=== PATIENT | male | born 1950 | race African-American/Black ===

== ENCOUNTER 2018-09-02 11:23 | Inpatient (IN) | payer MEDICAID, MEDICARE, OTHER ==
[~2018-09-02] VITALS: Ht 188 cm; Wt 108.0 kg
[2018-09-02 11:56] LABS: EOSINOPHILS % 2.7 % (0.0-5.0); HEMATOCRIT. 43.6 % (42.0-52.0); HEMOGLOBIN. 14.4 g/dL (14.0-18.0); LYMPHOCYTES % 28.8 % (20.0-50.0); MEAN CORPUSCULAR HEMOGLOBIN 31.1 pg (28.0-32.0); MEAN CORPUSCULAR VOLUME 94.2 fL (80.0-94.0); MEAN PLATELET VOLUME 9.8 fl (7.4-10.4); MONOCYTES % 11.2 % (2.0-8.0); NEUTROPHILS % 55.3 % (40.0-76.0); PLATELET 187 x1000/uL (130-400); RED BLOOD CELL COUNT 4.63 mill/uL (4.7-6.1); RED CELL DISTRIBUTION WIDTH 16.7 % (11.6-14.6)
[2018-09-02 12:02] LABS: CHLORIDE 106 mEq/L (98-107)
[2018-09-02 12:06] LABS: ETHANOL BLOOD < 10 mg/dL
[2018-09-02 12:09] LABS: LDL CHOLESTEROL 94 mg/dL (5-100)
[2018-09-02 12:14] LABS: INR 1.1; PROTHROMBIN TIME 11.3 sec (9.1-11.1)
[2018-09-02] MEDS ORDERED: IOHEXOL-350 100 ML BOTTLE ONE (12:28)
[2018-09-02] MEDS ORDERED: ASPIRIN 325MG TABLET PO ONE (12:45)
[2018-09-02] MEDS ORDERED: ASPIRIN 300MG SUPP PR ONE (13:00)
[2018-09-02] MEDS ORDERED: SODIUM CHLORIDE 0.9% 1,000 ML IV SCH (13:01)
[2018-09-02 13:16] LABS: CLARITY URINE CLEAR (CLEAR); COLOR URINE YELLOW (YELLOW); KETONES URINE NEGATIVE (NEGATIVE); LEUKOCYTE ESTERASE URINE NEGATIVE (NEGATIVE); NITRITE URINE NEGATIVE (NEGATIVE); OCCULT BLOOD URINE NEGATIVE (NEGATIVE); PROTEIN URINE NEGATIVE (NEGATIVE); SPECIFIC GRAVITY URINE 1.016 (1.005-1.030)
[2018-09-02 13:26] LABS: *AMPHETAMINES SCREEN URINE NEGATIVE (NEGATIVE); *BARBITURATES SCREEN URINE NEGATIVE (NEGATIVE); *BENZODIAZEPINES SCREEN URINE NEGATIVE (NEGATIVE); *COCAINE SCREEN URINE NEGATIVE (NEGATIVE); CANNABINOID URINE SCREEN PRESUMTIVE POSITIVE (NEGATIVE); METHADONE URINE SCREEN NEGATIVE (NEGATIVE); OPIATES URINE SCREEN NEGATIVE (NEGATIVE); PHENCYCLIDINE URINE SCREEN NEGATIVE (NEGATIVE)
[2018-09-02 14:00] VITALS: BP 150/110
[2018-09-02] MEDS ORDERED: GUAIFENESIN 200MG/10ML SUGAR FREE UDC PO PRN (14:15)
[2018-09-02] MEDS ORDERED: NA PHOS,M-B/NA PHOS,DI-BA ENEMA 118ML PR PRN (14:15)
[2018-09-02] MEDS ORDERED: ONDANSETRON HCL 4MG/2ML INJ IV PRN (14:15)
[2018-09-02] MEDS ORDERED: HYDROCODONE/ACETAMINOPHEN 5/325MG TABLET PO PRN (14:15)
[2018-09-02] MEDS ORDERED: ACETAMINOPHEN 325MG TABLET PO PRN (14:15)
[2018-09-02] MEDS ORDERED: ACETAMINOPHEN 650MG/20.3ML UDC GT PRN (14:15)
[2018-09-02] MEDS ORDERED: DIPHENHYDRAMINE 50MG/ML VIAL IV PRN (14:15)
[2018-09-02] MEDS ORDERED: ACETAMINOPHEN 650MG SUPP PR PRN (14:15)
[2018-09-02] MEDS ORDERED: MAGNESIUM/ALUMINUM HYDROXIDE/SIMETHICONE 30ML UDC PO PRN (14:15)
[2018-09-02] MEDS ORDERED: DOCUSATE SODIUM 100MG CAPSULE PO PRN (14:15)
[2018-09-02] MEDS ORDERED: HYDROCODONE/ACETAMINOPHEN 10/325MG TABLET PO PRN (14:15)
[2018-09-02 14:30] VITALS: BP 166/114
[2018-09-02 16:00] VITALS: BP 166/114
[2018-09-02 16:14] LABS: CLARITY URINE CLEAR (CLEAR); COLOR URINE YELLOW (YELLOW); KETONES URINE NEGATIVE (NEGATIVE); LEUKOCYTE ESTERASE URINE NEGATIVE (NEGATIVE); NITRITE URINE NEGATIVE (NEGATIVE); OCCULT BLOOD URINE NEGATIVE (NEGATIVE); PH URINE 7.5 (4.5-8.0); PROTEIN URINE NEGATIVE (NEGATIVE); SPECIFIC GRAVITY URINE 1.033 (1.005-1.030)
[2018-09-02] MEDS ORDERED: FURO80TA3 PO (16:19)
[2018-09-02] MEDS ORDERED: POTA-79 PO (16:19)
[2018-09-02] MEDS ORDERED: LISI10TA5 PO (16:19)
[2018-09-02] MEDS ORDERED: HYDR100T26 PO (16:19)
[2018-09-02] MEDS ORDERED: ISOS30TA12 PO (16:19)
[2018-09-02] MEDS ORDERED: CLOP75TA16 PO (16:19)
[2018-09-02] MEDS ORDERED: CARV25TA47 PO (16:19)
[2018-09-02] MEDS ORDERED: ATOR-2 PO (16:19)
[2018-09-02] MEDS ORDERED: AMIO100T4 PO (16:19)
[2018-09-02 16:35] LABS: *BENZODIAZEPINES SCREEN URINE NEGATIVE (NEGATIVE); *COCAINE SCREEN URINE NEGATIVE (NEGATIVE); METHADONE URINE SCREEN NEGATIVE (NEGATIVE); OPIATES URINE SCREEN NEGATIVE (NEGATIVE); PHENCYCLIDINE URINE SCREEN NEGATIVE (NEGATIVE)
[2018-09-02 16:36] LABS: *AMPHETAMINES SCREEN URINE NEGATIVE (NEGATIVE); *BARBITURATES SCREEN URINE NEGATIVE (NEGATIVE); CANNABINOID URINE SCREEN PRESUMTIVE POSITIVE (NEGATIVE)
[2018-09-02] MEDS: CLOPIDOGREL 75MG TABLET PO SCH (16:42)
[2018-09-02] MEDS: SODIUM CHLORIDE 0.45% 1,000 ML IV SCH (16:42)
[2018-09-02] MEDS: ENOXAPARIN 30MG/0.3ML SYR SUBCUT SCH (17:57)
[2018-09-02 18:00] VITALS: BP 174/117
[2018-09-02 19:49] VITALS: BP 157/101
[2018-09-02] MEDS: ATORVASTATIN CALCIUM 20MG TABLET PO SCH (20:59)
[2018-09-02] MEDS: SODIUM CHLORIDE 0.9% INJ 3ML FLUSH IVF SCH (21:00)
[2018-09-02 21:49] VITALS: BP 142/99
[2018-09-03] VITALS (12 sets, daily range): BP systolic 125–185; BP diastolic 45–124
[2018-09-03] MEDS: SODIUM CHLORIDE 0.9% INJ 3ML FLUSH IVF SCH ×3 (05:16→22:00)
[2018-09-03] MEDS: ENOXAPARIN 30MG/0.3ML SYR SUBCUT SCH ×2 (05:16→17:29)
[2018-09-03 06:37] LABS: BASOPHILS % 0.8 % (0.0-2.0); EOSINOPHILS % 3.7 % (0.0-5.0); HEMATOCRIT. 41.3 % (42.0-52.0); HEMOGLOBIN. 13.7 g/dL (14.0-18.0); LYMPHOCYTES % 29.6 % (20.0-50.0); MEAN CORPUSCULAR HEMOGLOBIN 31.3 pg (28.0-32.0); MONOCYTES % 13.7 % (2.0-8.0); NEUTROPHILS % 52.2 % (40.0-76.0); PLATELET 192 x1000/uL (130-400); RED BLOOD CELL COUNT 4.39 mill/uL (4.7-6.1); RED CELL DISTRIBUTION WIDTH 16.2 % (11.6-14.6)
[2018-09-03 06:56] LABS: CHLORIDE 107 mEq/L (98-107)
[2018-09-03 07:08] LABS: LDL CHOLESTEROL 96 mg/dL (5-100)
[2018-09-03 07:09] LABS: HDL CHOLESTEROL 69 mg/dL (40-59)
[2018-09-03] MEDS: CLOPIDOGREL 75MG TABLET PO SCH (09:06)
[2018-09-03] MEDS: ASPIRIN 81MG EC TABLET PO SCH (09:06)
[2018-09-03] MEDS: SODIUM CHLORIDE 0.45% 1,000 ML IV SCH (09:09)
[2018-09-03 10:23] LABS: T4 FREE 1.49 ng/dL (0.76-1.46)
[2018-09-03 15:56] LABS: CREATINE KINASE MB FRACTION 1.5 ng/mL (0.5-3.6)
[2018-09-03] MEDS: HYDRALAZINE 20MG/ML VIAL IV PRN (18:10)
[2018-09-03] MEDS: ATORVASTATIN CALCIUM 20MG TABLET PO SCH (20:23)
[2018-09-03 23:54] LABS: CREATINE KINASE MB FRACTION 1.4 ng/mL (0.5-3.6)
[2018-09-04] VITALS (39 sets, daily range): BP systolic 127–194; BP diastolic 68–150
[2018-09-04] MEDS: SODIUM CHLORIDE 0.9% INJ 3ML FLUSH IVF SCH ×3 (06:15→20:28)
[2018-09-04] MEDS: SODIUM CHLORIDE 0.45% 1,000 ML IV SCH (06:15)
[2018-09-04] MEDS: ENOXAPARIN 30MG/0.3ML SYR SUBCUT SCH ×2 (06:16→17:16)
[2018-09-04 06:36] LABS: BASOPHILS % 0.6 % (0.0-2.0); HEMATOCRIT. 43.1 % (42.0-52.0); HEMOGLOBIN. 14.2 g/dL (14.0-18.0); LYMPHOCYTES % 21.2 % (20.0-50.0); MEAN CORPUSCULAR HEMOGLOBIN 31.1 pg (28.0-32.0); MEAN CORPUSCULAR VOLUME 94.3 fL (80.0-94.0); MEAN PLATELET VOLUME 10.2 fl (7.4-10.4); NEUTROPHILS % 62.2 % (40.0-76.0); PLATELET 194 x1000/uL (130-400); RED BLOOD CELL COUNT 4.57 mill/uL (4.7-6.1); RED CELL DISTRIBUTION WIDTH 16.4 % (11.6-14.6)
[2018-09-04 07:09] LABS: CHLORIDE 106 mEq/L (98-107)
[2018-09-04 07:37] LABS: CREATINE KINASE 76 IU/L (39-308)
[2018-09-04 07:39] LABS: CREATINE KINASE MB FRACTION 1.6 ng/mL (0.5-3.6)
[2018-09-04] MEDS: CLOPIDOGREL 75MG TABLET PO SCH (08:42)
[2018-09-04] MEDS: ASPIRIN 81MG EC TABLET PO SCH (08:42)
[2018-09-04] MEDS: IPRATROPIUM/ALBUTEROL 0.5-3(2.5)MG/3ML NEB INH PRN ×2 (12:56→17:48)
[2018-09-04] MEDS ORDERED: AMLO10TA80 PO (14:12)
[2018-09-04] MEDS ORDERED: CLOP75TA16 PO (14:12)
[2018-09-04] MEDS ORDERED: BENA5TAB6 PO (14:12)
[2018-09-04] MEDS ORDERED: ASPI-1158 PO (14:12)
[2018-09-04] MEDS ORDERED: ATOR20TA PO (14:12)
[2018-09-04] MEDS ORDERED: AMLODIPINE 10MG TABLET PO SCH (14:15)
[2018-09-04] MEDS ORDERED: BENAZEPRIL 5MG TABLET PO SCH (15:00)
[2018-09-04] MEDS: HYDRALAZINE 20MG/ML VIAL IV PRN (15:55)
[2018-09-04] MEDS ORDERED: FUROSEMIDE 40MG/4ML VIAL IVP NR (16:15)
[2018-09-04] MEDS ORDERED: FUROSEMIDE 40MG/4ML VIAL IVP ONE (16:30)
[2018-09-04] MEDS: METHYLPREDNISOLONE SOD SUCC 40 MG/ML VIAL IV SCH ×2 (16:34→22:51)
[2018-09-04] MEDS: HYDRALAZINE HCL 50MG TABLET PO SCH ×2 (17:16→22:51)
[2018-09-04 17:18] LABS: BG BASE EXCESS -1.2 mmol/L (-2.0-2.0); BG CARBOXYHEMOGLOBIN 1.4 % (0.5-1.5); BG DEOXYHEMOGLOBIN 1.7 % (0.0-5.0); BG FRACTION INSPIRED OXYGEN 32; BG HCO3 ACT 19.9 mmol/L (22.0-26.0); BG METHEMOGLOBIN 0.5 % (0.0-1.5); BG OXYGEN SATURATION 98.3 % (92.0-98.5); BG OXYHEMOGLOBIN 96.4 % (94.0-97.0); BG PCO2 25.8 mmHg (35.0-45.0); BG PH 7.505 (7.350-7.450); BG PO2 102.8 mmHg (75.0-100.0); BG SAMPLE SITE RIGHT BRACHIAL; BG TOTAL HEMOGLOBIN 16.5 g/dL (12.0-18.0); BG VENT MODE NASAL CANNULA
[2018-09-04] MEDS ORDERED: HYDRALAZINE 20MG/ML VIAL IV PRN (18:30)
[2018-09-04 18:49] LABS: HEMATOCRIT 48.9 % (42.0-52.0); HEMOGLOBIN 16.2 g/dL (14.0-18.0); MEAN CORPUSCULAR HEMOGLOBIN 31.1 pg (28.0-32.0); MEAN CORPUSCULAR VOLUME 94.1 fL (80.0-94.0); PLATELET 201 x1000/uL (130-400); RED BLOOD CELL COUNT 5.19 mill/uL (4.7-6.1); RED CELL DISTRIBUTION WIDTH 16.2 % (11.6-14.6)
[2018-09-04 18:55] LABS: CHLORIDE 102 mEq/L (98-107)
[2018-09-04] MEDS: NITROGLYCERIN 0.2MG/HR PATCH TOP SCH (18:57)
[2018-09-04] MEDS: ATORVASTATIN CALCIUM 20MG TABLET PO SCH (20:28)
[2018-09-04] MEDS: ALBUTEROL (0.083%) 2.5MG/3ML NEB HHN SCH (20:37)
[2018-09-05] VITALS (32 sets, daily range): BP systolic 110–174; BP diastolic 60–130
[2018-09-05] MEDS: ALBUTEROL (0.083%) 2.5MG/3ML NEB HHN SCH ×4 (00:39→20:11)
[2018-09-05] MEDS: METHYLPREDNISOLONE SOD SUCC 40 MG/ML VIAL IV SCH (05:46)
[2018-09-05] MEDS: HYDRALAZINE HCL 50MG TABLET PO SCH (05:46)
[2018-09-05] MEDS: SODIUM CHLORIDE 0.9% INJ 3ML FLUSH IVF SCH ×2 (05:46→14:04)
[2018-09-05] MEDS: ENOXAPARIN 30MG/0.3ML SYR SUBCUT SCH ×2 (05:46→16:36)
[2018-09-05] MEDS: AMLODIPINE 10MG TABLET PO SCH (08:42)
[2018-09-05] MEDS: CLOPIDOGREL 75MG TABLET PO SCH (08:42)
[2018-09-05] MEDS: ASPIRIN 81MG EC TABLET PO SCH (08:42)
[2018-09-05] MEDS: BENAZEPRIL 5MG TABLET PO SCH (08:43)
[2018-09-05] MEDS: FUROSEMIDE 40MG/4ML VIAL IVP SCH (08:43)
[2018-09-05] MEDS: NITROGLYCERIN 0.2MG/HR PATCH TOP SCH (08:53)
[2018-09-05] MEDS ORDERED: BENAZEPRIL 5MG TABLET PO SCH (09:00)
[2018-09-05] MEDS ORDERED: MAGNESIUM CITRATE 300ML SOLUTION PO SCH (10:15)
[2018-09-05] MEDS ORDERED: BISACODYL 5MG TABLET PO SCH (10:15)
[2018-09-05] MEDS: HYDRALAZINE HCL 25MG TABLET PO SCH ×2 (14:21→22:00)
[2018-09-05] MEDS: ATORVASTATIN CALCIUM 20MG TABLET PO SCH (21:11)
[2018-09-06] VITALS (21 sets, daily range): BP systolic 99–165; BP diastolic 51–118
[2018-09-06] MEDS: ALBUTEROL (0.083%) 2.5MG/3ML NEB HHN SCH ×4 (00:41→20:53)
[2018-09-06] MEDS: ENOXAPARIN 30MG/0.3ML SYR SUBCUT SCH ×2 (05:41→17:05)
[2018-09-06] MEDS: HYDRALAZINE HCL 25MG TABLET PO SCH ×3 (05:42→21:56)
[2018-09-06] MEDS: CLOPIDOGREL 75MG TABLET PO SCH (08:29)
[2018-09-06] MEDS: AMLODIPINE 10MG TABLET PO SCH (08:29)
[2018-09-06] MEDS: BENAZEPRIL 5MG TABLET PO SCH (08:30)
[2018-09-06] MEDS: NITROGLYCERIN 0.2MG/HR PATCH TOP SCH (08:30)
[2018-09-06] MEDS: ASPIRIN 81MG EC TABLET PO SCH (08:30)
[2018-09-06] MEDS: FUROSEMIDE 40MG/4ML VIAL IVP SCH (08:30)
[2018-09-06] MEDS ORDERED: METHYLPREDNISOLONE SOD SUCC 40 MG/ML VIAL IV SCH (09:00)
[2018-09-06] MEDS ORDERED: BENA5TAB6 PO (10:21)
[2018-09-06] MEDS ORDERED: HYDR-4134 PO (10:21)
[2018-09-06] MEDS ORDERED: MEDICATION NOT ON FORMULARY EA (Furosemide 80 MG) PO SCH (10:30)
[2018-09-06] MEDS: CARVEDILOL 25MG TABLET PO SCH ×2 (10:55→21:00)
[2018-09-06] MEDS: SODIUM CHLORIDE 0.9% INJ 3ML FLUSH IVF SCH ×3 (14:12→21:58)
[2018-09-06 16:39] LABS: HEMATOCRIT. 45.9 % (42.0-52.0); MEAN CORPUSCULAR HEMOGLOBIN 30.8 pg (28.0-32.0); MEAN CORPUSCULAR VOLUME 94.2 fL (80.0-94.0); MEAN PLATELET VOLUME 10.4 fl (7.4-10.4); PLATELET 197 x1000/uL (130-400); RED BLOOD CELL COUNT 4.87 mill/uL (4.7-6.1); RED CELL DISTRIBUTION WIDTH 16.1 % (11.6-14.6)
[2018-09-06 17:02] LABS: CHLORIDE 100 mEq/L (98-107)
[2018-09-06 17:04] LABS: PLATELET ESTIMATE NORMAL
[2018-09-06] MEDS: FUROSEMIDE 40MG TABLET PO SCH (17:04)
[2018-09-06] MEDS: ATORVASTATIN CALCIUM 20MG TABLET PO SCH (21:55)
[2018-09-07] VITALS (9 sets, daily range): BP systolic 100–146; BP diastolic 60–95
[2018-09-07] MEDS: ALBUTEROL (0.083%) 2.5MG/3ML NEB HHN SCH ×4 (02:07→14:10)
[2018-09-07] MEDS: ENOXAPARIN 30MG/0.3ML SYR SUBCUT SCH (05:00)
[2018-09-07] MEDS: SODIUM CHLORIDE 0.9% INJ 3ML FLUSH IVF SCH ×2 (06:00→13:09)
[2018-09-07] MEDS: HYDRALAZINE HCL 25MG TABLET PO SCH ×2 (07:00→13:15)
[2018-09-07 07:50] LABS: BASOPHILS % 0.2 % (0.0-2.0); HEMOGLOBIN. 14.8 g/dL (14.0-18.0); LYMPHOCYTES % 11.7 % (20.0-50.0); MEAN CORPUSCULAR VOLUME 94.4 fL (80.0-94.0); MEAN PLATELET VOLUME 10.4 fl (7.4-10.4); MONOCYTES % 7.4 % (2.0-8.0); NEUTROPHILS % 80.7 % (40.0-76.0); PLATELET 224 x1000/uL (130-400); RED BLOOD CELL COUNT 4.77 mill/uL (4.7-6.1); RED CELL DISTRIBUTION WIDTH 15.9 % (11.6-14.6)
[2018-09-07 07:56] LABS: CHLORIDE 103 mEq/L (98-107)
[2018-09-07] MEDS: CLOPIDOGREL 75MG TABLET PO SCH (08:01)
[2018-09-07] MEDS: FUROSEMIDE 40MG TABLET PO SCH (08:01)
[2018-09-07] MEDS: ASPIRIN 81MG EC TABLET PO SCH (08:01)
[2018-09-07] MEDS: AMLODIPINE 10MG TABLET PO SCH (08:01)
[2018-09-07] MEDS: BENAZEPRIL 5MG TABLET PO SCH (08:01)
[2018-09-07] MEDS: CARVEDILOL 25MG TABLET PO SCH (08:02)
[2018-09-07] MEDS: NITROGLYCERIN 0.2MG/HR PATCH TOP SCH (08:07)
[2018-09-07] MEDS ORDERED: EZ-HD SUSPENSION(BARIUM SULFATE 340GM) PO ONE (08:25)
[2018-09-07] MEDS ORDERED: CARV25TA47 PO (14:04)
[2018-09-07] MEDS ORDERED: CARVEDILOL 6.25 MG TABLET PO SCH (21:00)
[2018-09-08] MEDS ORDERED: CARVEDILOL 25MG TABLET PO SCH (09:00)
== END 2018-09-07 15:00 | disposition home health service (06) | DRG 64 ==
LOC: ER 11:23 → 5EST 13:00 → EDBEDREQ 13:08 → EDBEDREQSVC 13:08 → ENRESERV 13:45 → UNDOADMIN 13:45 → 5EST 13:45 → CVICU 09-04 16:40 → 5EST 09-05 11:20
PROVIDERS: ADMIT Family Medicine; ATTEND Family Medicine
DX: I63.511 Cerebral infarction due to unspecified occlusion or stenosis of right middle cerebral artery (principal); N17.0 Acute kidney failure with tubular necrosis; I50.42 Chronic combined systolic (congestive) and diastolic (congestive) heart failure; I65.23 Occlusion and stenosis of bilateral carotid arteries; E66.01 Morbid (severe) obesity due to excess calories; J44.9 Chronic obstructive pulmonary disease, unspecified; F12.90 Cannabis use, unspecified, uncomplicated; E78.5 Hyperlipidemia, unspecified; I25.10 Atherosclerotic heart disease of native coronary artery without angina pectoris; I25.2 Old myocardial infarction; I25.5 Ischemic cardiomyopathy; I27.20 Pulmonary hypertension, unspecified; I11.0 Hypertensive heart disease with heart failure; Z79.02 Long term (current) use of antithrombotics/antiplatelets; Z79.899 Other long term (current) drug therapy; Z86.73 Personal history of transient ischemic attack (TIA), and cerebral infarction without residual deficits; Z87.19 Personal history of other diseases of the digestive system; Z95.5 Presence of coronary angioplasty implant and graft; Z95.810 Presence of automatic (implantable) cardiac defibrillator; Z68.31 Body mass index [BMI] 31.0-31.9, adult
CPT/HCPCS: 36415; 36600; 70496; 70498; 71045; 74230; 78580; 80048; 80061; 80305; 82375; 82550; 82553; 82805; 82962; 83036; 83721; 83735; 83880; 84439; 84443; 84484; 85027; 85379; 92610; 92611; 93005; 93306; 93880; 93970; 94640; 96374; 97116; 97162; 97166; 99285; G0482; J0360; J1650; J1940; J2405; J2920; J7030; J7611; Q9967

== ENCOUNTER 2019-07-30 21:12 | Inpatient (IN) | payer MEDICARE ==
[~2019-07-30] VITALS: Ht 188 cm; Wt 112.7 kg
[~2019-07-30 21:12] MED LIST: AMIO100T4 PO; ASPI-1158 PO; ATOR-2 PO; CARV12.545 PO; CLOP75TA4 PO; POTA-79 PO; SACU1TAB4 PO; SPIR50TA5 PO
[2019-07-31] MEDS ORDERED: HYDROCODONE/ACETAMINOPHEN 10/325MG TABLET PO PRN (00:45)
[2019-07-31] MEDS ORDERED: MAGNESIUM/ALUMINUM HYDROXIDE/SIMETHICONE 30ML UDC PO PRN (00:45)
[2019-07-31] MEDS ORDERED: DOCUSATE SODIUM 100MG CAPSULE PO PRN (00:45)
[2019-07-31] MEDS ORDERED: IPRATROPIUM/ALBUTEROL 0.5-3(2.5)MG/3ML NEB HHN PRN (00:45)
[2019-07-31] MEDS ORDERED: GUAIFENESIN 200MG/10ML SUGAR FREE UDC PO PRN (00:45)
[2019-07-31] MEDS ORDERED: ONDANSETRON HCL 4MG/2ML INJ IV PRN (00:45)
[2019-07-31] MEDS ORDERED: NA PHOS,M-B/NA PHOS,DI-BA ENEMA 118ML PR PRN (00:45)
[2019-07-31] MEDS ORDERED: ACETAMINOPHEN 650MG/20.3ML UDC GT PRN (00:45)
[2019-07-31] MEDS ORDERED: HYDROCODONE/ACETAMINOPHEN 5/325MG TABLET PO PRN (00:45)
[2019-07-31] MEDS ORDERED: CLONIDINE 0.1MG TABLET PO PRN (00:45)
[2019-07-31] MEDS ORDERED: DIPHENHYDRAMINE 50MG/ML VIAL IV PRN (00:45)
[2019-07-31] MEDS ORDERED: ACETAMINOPHEN 650MG SUPP PR PRN (00:45)
[2019-07-31 00:57] LABS: BASOPHILS % 1.2 % (0.0-2.0); EOSINOPHILS % 4.6 % (0.0-5.0); HEMATOCRIT. 44.6 % (42.0-52.0); HEMOGLOBIN. 14.8 g/dL (14.0-18.0); LYMPHOCYTES % 35.3 % (20.0-50.0); MEAN CORPUSCULAR HEMOGLOBIN 32.4 pg (28.0-32.0); MEAN CORPUSCULAR VOLUME 97.5 fL (80.0-94.0); MEAN PLATELET VOLUME 8.8 fl (7.4-10.4); MONOCYTES % 14.6 % (2.0-8.0); NEUTROPHILS % 44.3 % (40.0-76.0); PLATELET 260 x1000/uL (130-400); RED BLOOD CELL COUNT 4.57 mill/uL (4.7-6.1); RED CELL DISTRIBUTION WIDTH 15.4 % (11.6-14.6)
[2019-07-31 01:00] LABS: CLARITY URINE CLEAR (CLEAR); COLOR URINE YELLOW (YELLOW); KETONES URINE NEGATIVE (NEGATIVE); LEUKOCYTE ESTERASE URINE NEGATIVE (NEGATIVE); NITRITE URINE NEGATIVE (NEGATIVE); OCCULT BLOOD URINE NEGATIVE (NEGATIVE); PROTEIN URINE NEGATIVE (NEGATIVE); SPECIFIC GRAVITY URINE 1.018 (1.005-1.030)
[2019-07-31 01:16] LABS: *BENZODIAZEPINES SCREEN URINE NEGATIVE (NEGATIVE); *COCAINE SCREEN URINE NEGATIVE (NEGATIVE); METHADONE URINE SCREEN NEGATIVE (NEGATIVE)
[2019-07-31 01:17] LABS: *AMPHETAMINES SCREEN URINE NEGATIVE (NEGATIVE); *BARBITURATES SCREEN URINE NEGATIVE (NEGATIVE); CANNABINOID URINE SCREEN PRESUMTIVE POSITIVE (NEGATIVE); OPIATES URINE SCREEN NEGATIVE (NEGATIVE); PHENCYCLIDINE URINE SCREEN NEGATIVE (NEGATIVE)
[2019-07-31 03:03] LABS: CHLORIDE 107 mEq/L (98-107)
[2019-07-31 07:06] LABS: CREATINE KINASE 77 IU/L (39-308)
[2019-07-31 07:07] LABS: CREATINE KINASE MB FRACTION < 1.0 ng/mL (0.5-3.6)
[2019-07-31] MEDS ORDERED: ASPIRIN 81MG EC TABLET PO SCH (15:00)
[2019-07-31] MEDS ORDERED: MEDICATION NOT ON FORMULARY EA (Sacubitril/Valsartan (Entresto 97 mg-103 mg Tablet) 1 TA PO SCH (15:15)
[2019-07-31] MEDS ORDERED: MEDICATION NOT ON FORMULARY EA (Amiodarone HCl 200 MG) PO SCH (15:15)
[2019-07-31] MEDS ORDERED: CARVEDILOL 12.5MG TABLET PO SCH (15:15)
[2019-07-31] MEDS ORDERED: MEDICATION NOT ON FORMULARY EA (Atorvastatin Calcium 80 MG) PO SCH (15:15)
[2019-07-31] MEDS ORDERED: MEDICATION NOT ON FORMULARY EA (Potassium Chloride 20 MEQ) PO SCH (15:15)
[2019-07-31] MEDS: ACETAMINOPHEN 325MG TABLET PO PRN (19:58)
[2019-07-31] MEDS ORDERED: SPIRONOLACTONE 50MG TABLET PO NR (20:00)
[2019-07-31 20:47] LABS: CREATINE KINASE 67 IU/L (39-308)
[2019-07-31 20:48] LABS: CREATINE KINASE MB FRACTION < 1.0 ng/mL (0.5-3.6)
[2019-07-31] MEDS: CARVEDILOL 12.5MG TABLET PO SCH (20:52)
[2019-07-31] MEDS: ENOXAPARIN 40MG/0.4ML SYR SUBCUT SCH (20:59)
[2019-08-01] VITALS (11 sets, daily range): BP systolic 93–131; BP diastolic 53–99
[2019-08-01] MEDS: SODIUM CHLORIDE 0.9% INJ 3ML FLUSH IVF SCH ×3 (06:17→22:00)
[2019-08-01 07:17] LABS: CHLORIDE 104 mEq/L (98-107)
[2019-08-01 07:35] LABS: LDL CHOLESTEROL 109 mg/dL (5-100)
[2019-08-01 07:38] LABS: HDL CHOLESTEROL 48 mg/dL (40-59)
[2019-08-01 08:14] LABS: BASOPHILS % 0.6 % (0.0-2.0); EOSINOPHILS % 4.1 % (0.0-5.0); HEMATOCRIT. 46.8 % (42.0-52.0); HEMOGLOBIN. 15.2 g/dL (14.0-18.0); LYMPHOCYTES % 39.2 % (20.0-50.0); MEAN CORPUSCULAR HEMOGLOBIN 32.2 pg (28.0-32.0); MEAN CORPUSCULAR VOLUME 98.8 fL (80.0-94.0); MEAN PLATELET VOLUME 8.8 fl (7.4-10.4); MONOCYTES % 10.7 % (2.0-8.0); NEUTROPHILS % 45.4 % (40.0-76.0); PLATELET 251 x1000/uL (130-400); RED BLOOD CELL COUNT 4.73 mill/uL (4.7-6.1); RED CELL DISTRIBUTION WIDTH 15.6 % (11.6-14.6)
[2019-08-01 08:34] LABS: CLARITY URINE CLEAR (CLEAR); COLOR URINE DARK YELLOW (YELLOW); KETONES URINE NEGATIVE (NEGATIVE); LEUKOCYTE ESTERASE URINE NEGATIVE (NEGATIVE); NITRITE URINE NEGATIVE (NEGATIVE); OCCULT BLOOD URINE NEGATIVE (NEGATIVE); PH URINE 5.5 (4.5-8.0); PROTEIN URINE NEGATIVE (NEGATIVE); SPECIFIC GRAVITY URINE 1.025 (1.005-1.030)
[2019-08-01] MEDS: POTASSIUM CHLORIDE 20MEQ TABLET SR PO SCH (08:35)
[2019-08-01] MEDS: CLOPIDOGREL 75MG TABLET PO SCH (08:35)
[2019-08-01] MEDS: CARVEDILOL 12.5MG TABLET PO SCH ×2 (08:35→20:09)
[2019-08-01] MEDS: ASPIRIN 81MG EC TABLET PO SCH (08:35)
[2019-08-01] MEDS: SPIRONOLACTONE 50MG TABLET PO SCH (08:36)
[2019-08-01] MEDS ORDERED: AMIODARONE HCL 200 MG TABLET PO SCH (09:00)
[2019-08-01] MEDS: ENOXAPARIN 40MG/0.4ML SYR SUBCUT SCH (15:44)
[2019-08-01] MEDS: ENTRESTO 97-103MG TABLET PO SCH ×2 (19:29→23:30)
[2019-08-01] MEDS ORDERED: ATORVASTATIN CALCIUM 40MG TABLET PO SCH (21:00)
[2019-08-01] MEDS: MEXILETINE HCL 200 MG CAPSULE PO SCH (22:00)
[2019-08-02] VITALS (10 sets, daily range): BP systolic 105–131; BP diastolic 50–98
[2019-08-02] MEDS: AMIODARONE HCL 200 MG TABLET PO SCH ×2 (03:22→10:38)
[2019-08-02] MEDS: MEXILETINE HCL 200 MG CAPSULE PO SCH ×2 (06:00→14:00)
[2019-08-02] MEDS: SODIUM CHLORIDE 0.9% INJ 3ML FLUSH IVF SCH (06:52)
[2019-08-02] MEDS: ENTRESTO 97-103MG TABLET PO SCH (09:14)
[2019-08-02] MEDS: POTASSIUM CHLORIDE 20MEQ TABLET SR PO SCH (09:18)
[2019-08-02] MEDS: SPIRONOLACTONE 50MG TABLET PO SCH (09:18)
[2019-08-02] MEDS: ASPIRIN 81MG EC TABLET PO SCH (09:18)
[2019-08-02] MEDS: CLOPIDOGREL 75MG TABLET PO SCH (09:18)
[2019-08-02] MEDS ORDERED: MEXI200C PO ×2 (10:08→16:28)
[2019-08-02] MEDS ORDERED: AMI2 PO (10:08)
[2019-08-02] MEDS: CARVEDILOL 12.5MG TABLET PO SCH (10:40)
[2019-08-02 11:06] LABS: HEMATOCRIT 48.6 % (42.0-52.0); HEMOGLOBIN 15.9 g/dL (14.0-18.0); MEAN CORPUSCULAR HEMOGLOBIN 32.2 pg (28.0-32.0); MEAN CORPUSCULAR VOLUME 98.4 fL (80.0-94.0); PLATELET 264 x1000/uL (130-400); RED BLOOD CELL COUNT 4.95 mill/uL (4.7-6.1); RED CELL DISTRIBUTION WIDTH 15.3 % (11.6-14.6)
[2019-08-02 11:42] LABS: CHLORIDE 104 mEq/L (98-107)
[2019-08-02] MEDS: ACETAMINOPHEN 325MG TABLET PO PRN (15:55)
== END 2019-08-02 16:50 | disposition home health service (06) | DRG 310 ==
LOC: ER 21:12 → EDBEDREQ 07-31 00:54 → EDBEDREQTM 07-31 00:54 → ENRESERV 08-01 → 3WST 08-01 00:55
PROVIDERS: ADMIT Family Medicine; ATTEND Family Medicine
PROC: 4B02XTZ Measurement of Cardiac Defibrillator, External Approach (ICD-10-PCS; principal; 2019-07-31)
DX: I47.2 Ventricular tachycardia (principal); I25.5 Ischemic cardiomyopathy; I48.0 Paroxysmal atrial fibrillation; I11.0 Hypertensive heart disease with heart failure; E78.5 Hyperlipidemia, unspecified; I25.10 Atherosclerotic heart disease of native coronary artery without angina pectoris; J44.9 Chronic obstructive pulmonary disease, unspecified; K21.9 Gastro-esophageal reflux disease without esophagitis; K59.00 Constipation, unspecified; I50.9 Heart failure, unspecified; Z86.73 Personal history of transient ischemic attack (TIA), and cerebral infarction without residual deficits; I25.2 Old myocardial infarction; Z95.5 Presence of coronary angioplasty implant and graft; Z95.810 Presence of automatic (implantable) cardiac defibrillator; Z79.899 Other long term (current) drug therapy; Z79.82 Long term (current) use of aspirin
CPT/HCPCS: 36415; 71045; 80053; 80061; 81003; 85025; 85027; 93005; 93970; 96372; 99291; J1650

== ENCOUNTER 2019-09-01 16:35 | Inpatient (IN) | payer MEDICARE, OTHER ==
[~2019-09-01] VITALS: Ht 188 cm; Wt 102.1 kg
[~2019-09-01 16:35] MED LIST changes: +AMI2 PO; -AMIO100T4 PO; +MEXI200C PO
[2019-09-01] MEDS ORDERED: SODIUM CHLORIDE 0.9% 1,000 ML IV ONE (17:07)
[2019-09-01 17:50] LABS: BASOPHILS % 0.9 % (0.0-2.0); EOSINOPHILS % 1.8 % (0.0-5.0); HEMATOCRIT. 47.3 % (42.0-52.0); HEMOGLOBIN. 15.7 g/dL (14.0-18.0); LYMPHOCYTES % 35.3 % (20.0-50.0); MEAN CORPUSCULAR HEMOGLOBIN 31.7 pg (28.0-32.0); MEAN CORPUSCULAR VOLUME 95.5 fL (80.0-94.0); MEAN PLATELET VOLUME 8.9 fl (7.4-10.4); MONOCYTES % 11.7 % (2.0-8.0); NEUTROPHILS % 50.3 % (40.0-76.0); PLATELET 158 x1000/uL (130-400); RED BLOOD CELL COUNT 4.95 mill/uL (4.7-6.1); RED CELL DISTRIBUTION WIDTH 15.6 % (11.6-14.6)
[2019-09-01 17:54] LABS: CHLORIDE 106 mEq/L (98-107); INR 1.1; PARTIAL THROMBOPLASTIN TIME 27.8 sec (23.4-31.0); PROTHROMBIN TIME 10.9 sec (9.6-11.0)
[2019-09-01 18:13] LABS: CLARITY URINE CLEAR (CLEAR); COLOR URINE YELLOW (YELLOW); KETONES URINE NEGATIVE (NEGATIVE); LEUKOCYTE ESTERASE URINE NEGATIVE (NEGATIVE); NITRITE URINE NEGATIVE (NEGATIVE); OCCULT BLOOD URINE NEGATIVE (NEGATIVE); PROTEIN URINE NEGATIVE (NEGATIVE); SPECIFIC GRAVITY URINE 1.008 (1.005-1.030); UROBILINOGEN URINE 0.2 E.U./dL (0.2-1.0)
[2019-09-01] MEDS ORDERED: SODIUM POLYSTYRENE SULFONATE 15 G/60 ML BOT PO ONE (19:15)
[2019-09-01] MEDS ORDERED: ASPIRIN 325MG EC TABLET PO ONE (19:30)
[2019-09-02 04:00] VITALS: BP 132/89
[2019-09-02 04:30] VITALS: BP 132/89
[2019-09-02] MEDS ORDERED: HYDROCODONE/ACETAMINOPHEN 5/325MG TABLET PO PRN (05:45)
[2019-09-02 08:00] VITALS: BP 102/65
[2019-09-02 12:00] VITALS: BP 97/56
[2019-09-02] MEDS: ENOXAPARIN 40MG/0.4ML SYR SUBCUT SCH (13:51)
[2019-09-02 16:15] VITALS: BP 126/85
[2019-09-02 20:00] VITALS: BP 136/96
[2019-09-02] MEDS: ATORVASTATIN CALCIUM 40MG TABLET PO SCH (20:33)
[2019-09-02] MEDS: AMIODARONE HCL 200 MG TABLET PO SCH (20:33)
[2019-09-02] MEDS ORDERED: CARVEDILOL 12.5MG TABLET PO SCH (21:00)
[2019-09-03] VITALS: BP 113/75
[2019-09-03 04:00] VITALS: BP 91/59
[2019-09-03 08:00] VITALS: BP 102/75
[2019-09-03] MEDS: ENOXAPARIN 40MG/0.4ML SYR SUBCUT SCH (09:57)
[2019-09-03] MEDS: AMIODARONE HCL 200 MG TABLET PO SCH ×2 (09:57→21:26)
[2019-09-03] MEDS: SPIRONOLACTONE 50MG TABLET PO SCH (09:57)
[2019-09-03] MEDS: CLOPIDOGREL 75MG TABLET PO SCH (09:57)
[2019-09-03] MEDS: ASPIRIN 81MG TABLET PO SCH (09:58)
[2019-09-03 12:00] VITALS: BP 159/99
[2019-09-03 15:56] LABS: BASOPHILS % 0.5 % (0.0-2.0); EOSINOPHILS % 2.9 % (0.0-5.0); HEMATOCRIT. 47.8 % (42.0-52.0); LYMPHOCYTES % 37.7 % (20.0-50.0); MEAN CORPUSCULAR HEMOGLOBIN 32.1 pg (28.0-32.0); MEAN CORPUSCULAR VOLUME 96.1 fL (80.0-94.0); MEAN PLATELET VOLUME 8.9 fl (7.4-10.4); MONOCYTES % 12.8 % (2.0-8.0); NEUTROPHILS % 46.1 % (40.0-76.0); PLATELET 117 x1000/uL (130-400); RED BLOOD CELL COUNT 4.97 mill/uL (4.7-6.1); RED CELL DISTRIBUTION WIDTH 15.1 % (11.6-14.6)
[2019-09-03 16:00] VITALS: BP 128/85
[2019-09-03] MEDS ORDERED: AMI2 PO (17:31)
[2019-09-03 19:19] LABS: CHLORIDE 107 mEq/L (98-107)
[2019-09-03 20:00] VITALS: BP 121/75
[2019-09-03] MEDS: ATORVASTATIN CALCIUM 40MG TABLET PO SCH (21:27)
[2019-09-03 23:45] LABS: CHLORIDE 108 mEq/L (98-107)
[2019-09-04] VITALS: BP 114/77
[2019-09-04 04:00] VITALS: BP 118/79
[2019-09-04 08:23] VITALS: BP 128/88
[2019-09-04] MEDS ORDERED: AMIODARONE HCL 200 MG TABLET PO SCH (09:00)
[2019-09-04] MEDS: ASPIRIN 81MG TABLET PO SCH (09:21)
[2019-09-04] MEDS: ENOXAPARIN 40MG/0.4ML SYR SUBCUT SCH (09:21)
[2019-09-04] MEDS: CLOPIDOGREL 75MG TABLET PO SCH (09:21)
[2019-09-04] MEDS: SPIRONOLACTONE 50MG TABLET PO SCH (09:22)
[2019-09-04 11:35] VITALS: BP 136/92
[2019-09-04 11:53] LABS: BASOPHILS % 1.1 % (0.0-2.0); EOSINOPHILS % 2.4 % (0.0-5.0); HEMATOCRIT. 43.6 % (42.0-52.0); HEMOGLOBIN. 14.5 g/dL (14.0-18.0); LYMPHOCYTES % 33.6 % (20.0-50.0); MEAN CORPUSCULAR HEMOGLOBIN 31.8 pg (28.0-32.0); MEAN CORPUSCULAR VOLUME 95.7 fL (80.0-94.0); MEAN PLATELET VOLUME 8.3 fl (7.4-10.4); MONOCYTES % 11.9 % (2.0-8.0); PLATELET 142 x1000/uL (130-400); RED BLOOD CELL COUNT 4.56 mill/uL (4.7-6.1); RED CELL DISTRIBUTION WIDTH 14.8 % (11.6-14.6)
[2019-09-04 11:56] LABS: CHLORIDE 108 mEq/L (98-107)
[2019-09-04] MEDS ORDERED: COR3 MT (12:11)
[2019-09-04 12:56] VITALS: BP 136/92
== END 2019-09-04 13:43 | disposition home or self-care (01) | DRG 314 ==
LOC: ER 16:35 → 7WST 19:23 → ENRESERV 09-02 03:16
PROVIDERS: ADMIT Family Medicine; ATTEND Family Medicine
DX: I95.9 Hypotension, unspecified (principal); N17.0 Acute kidney failure with tubular necrosis; I13.0 Hypertensive heart and chronic kidney disease with heart failure and stage 1 through stage 4 chronic kidney disease, or unspecified chronic kidney disease; R55 Syncope and collapse; E78.5 Hyperlipidemia, unspecified; E87.5 Hyperkalemia; F17.210 Nicotine dependence, cigarettes, uncomplicated; I25.10 Atherosclerotic heart disease of native coronary artery without angina pectoris; I25.5 Ischemic cardiomyopathy; E66.09 Other obesity due to excess calories; K21.9 Gastro-esophageal reflux disease without esophagitis; R26.0 Ataxic gait; I50.9 Heart failure, unspecified; J44.9 Chronic obstructive pulmonary disease, unspecified; N18.9 Chronic kidney disease, unspecified; Z95.5 Presence of coronary angioplasty implant and graft; I25.2 Old myocardial infarction; Z95.810 Presence of automatic (implantable) cardiac defibrillator; Z79.82 Long term (current) use of aspirin; Z79.899 Other long term (current) drug therapy; Z86.73 Personal history of transient ischemic attack (TIA), and cerebral infarction without residual deficits; Z68.28 Body mass index [BMI] 28.0-28.9, adult
CPT/HCPCS: 36415; 71045; 80053; 81003; 83735; 83880; 84484; 85025; 93005; 93306; 93880; 99285; J1650; J7030

== ENCOUNTER 2019-09-08 13:38 | Inpatient (IN) | payer OTHER ==
[~2019-09-08] VITALS: Ht 188 cm; Wt 103.4 kg
[~2019-09-08 13:38] MED LIST changes: +COR3 MT
[2019-09-08 15:28] LABS: CHLORIDE 105 mEq/L (98-107)
[2019-09-08 15:30] LABS: BASOPHILS % 0.8 % (0.0-2.0); EOSINOPHILS % 1.2 % (0.0-5.0); HEMATOCRIT. 45.8 % (42.0-52.0); HEMOGLOBIN. 15.8 g/dL (14.0-18.0); LYMPHOCYTES % 28.5 % (20.0-50.0); MEAN CORPUSCULAR HEMOGLOBIN 32.5 pg (28.0-32.0); MEAN CORPUSCULAR VOLUME 94.3 fL (80.0-94.0); MEAN PLATELET VOLUME 8.2 fl (7.4-10.4); MONOCYTES % 10.1 % (2.0-8.0); NEUTROPHILS % 59.4 % (40.0-76.0); PLATELET 198 x1000/uL (130-400); RED BLOOD CELL COUNT 4.85 mill/uL (4.7-6.1); RED CELL DISTRIBUTION WIDTH 15.2 % (11.6-14.6)
[2019-09-08] MEDS ORDERED: SODIUM CHLORIDE 0.9% 1,000 ML IV ONE (17:15)
[2019-09-08 22:40] VITALS: BP 133/74
[2019-09-08] MEDS ORDERED: SACU1TAB PO (23:10)
[2019-09-08] MEDS ORDERED: FURO80TA3 PO (23:10)
[2019-09-08] MEDS ORDERED: POTA-79 PO (23:10)
[2019-09-08] MEDS ORDERED: AMI2 PO (23:14)
[2019-09-08] MEDS ORDERED: CARV6.2548 PO (23:14)
[2019-09-08 23:30] VITALS: BP 131/99
[2019-09-09] VITALS (7 sets, daily range): BP systolic 101–138; BP diastolic 72–91
[2019-09-09] MEDS ORDERED: NON FORMULARY PATIENT HOME MED XX SCH (00:45)
[2019-09-09] MEDS ORDERED: TEMAZEPAM 15MG CAPSULE PO PRN (00:45)
[2019-09-09 01:45] LABS: CREATINE KINASE MB FRACTION 1.4 ng/mL (0.5-3.6)
[2019-09-09] MEDS: CLOPIDOGREL 75MG TABLET PO SCH (08:17)
[2019-09-09] MEDS: POTASSIUM CHLORIDE 20MEQ TABLET SR PO SCH (08:18)
[2019-09-09] MEDS: ASPIRIN 81MG EC TABLET PO SCH (08:18)
[2019-09-09] MEDS: CARVEDILOL 6.25 MG TABLET PO SCH ×2 (08:18→20:58)
[2019-09-09] MEDS: SPIRONOLACTONE 50MG TABLET PO SCH (08:18)
[2019-09-09] MEDS: SACUBITRIL/VALSARTAN 24/26 TAB PO SCH ×2 (08:19→22:11)
[2019-09-09] MEDS: FUROSEMIDE 40MG TABLET PO SCH ×2 (08:21→18:09)
[2019-09-09 09:06] LABS: EOSINOPHILS % 1.8 % (0.0-5.0); HEMATOCRIT. 43.4 % (42.0-52.0); HEMOGLOBIN. 14.4 g/dL (14.0-18.0); LYMPHOCYTES % 32.6 % (20.0-50.0); MEAN CORPUSCULAR HEMOGLOBIN 31.7 pg (28.0-32.0); MEAN CORPUSCULAR VOLUME 95.5 fL (80.0-94.0); MEAN PLATELET VOLUME 8.5 fl (7.4-10.4); MONOCYTES % 10.4 % (2.0-8.0); NEUTROPHILS % 54.2 % (40.0-76.0); PLATELET 186 x1000/uL (130-400); RED BLOOD CELL COUNT 4.55 mill/uL (4.7-6.1); RED CELL DISTRIBUTION WIDTH 15.1 % (11.6-14.6)
[2019-09-09 09:38] LABS: CREATINE KINASE MB FRACTION 1.4 ng/mL (0.5-3.6)
[2019-09-09] MEDS ORDERED: ACETAMINOPHEN 650MG SUPP PR PRN (16:00)
[2019-09-09] MEDS ORDERED: HYDRALAZINE 20MG/ML VIAL IV PRN (16:00)
[2019-09-09] MEDS ORDERED: HYDROCODONE/ACETAMINOPHEN 5/325MG TABLET PO PRN (16:00)
[2019-09-09] MEDS ORDERED: ACETAMINOPHEN 325MG TABLET PO PRN (16:00)
[2019-09-09] MEDS ORDERED: LACTULOSE 20G/30ML UDC PO PRN (16:00)
[2019-09-09 20:17] LABS: CREATINE KINASE 61 IU/L (39-308)
[2019-09-09 20:18] LABS: CREATINE KINASE MB FRACTION < 1.0 ng/mL (0.5-3.6)
[2019-09-09] MEDS: ATORVASTATIN CALCIUM 40MG TABLET PO SCH (20:42)
[2019-09-09] MEDS: IPRATROPIUM/ALBUTEROL 0.5-3(2.5)MG/3ML NEB HHN PRN (20:53)
[2019-09-09] MEDS: BUDESONIDE 0.5MG/2ML NEB HHN SCH (20:53)
[2019-09-09] MEDS: ACETAMINOPHEN 650MG/20.3ML UDC PO PRN (20:57)
[2019-09-10 00:23] VITALS: BP 110/74
[2019-09-10 02:49] VITALS: BP 119/80
[2019-09-10] MEDS: ACETAMINOPHEN 650MG/20.3ML UDC PO PRN ×2 (03:14→22:41)
[2019-09-10 04:00] VITALS: BP 137/81
[2019-09-10 06:17] LABS: BASOPHILS % 0.5 % (0.0-2.0); EOSINOPHILS % 2.4 % (0.0-5.0); HEMATOCRIT. 39.3 % (42.0-52.0); HEMOGLOBIN. 13.4 g/dL (14.0-18.0); LYMPHOCYTES % 34.4 % (20.0-50.0); MEAN CORPUSCULAR HEMOGLOBIN 31.9 pg (28.0-32.0); MEAN CORPUSCULAR VOLUME 93.7 fL (80.0-94.0); MEAN PLATELET VOLUME 8.3 fl (7.4-10.4); MONOCYTES % 11.8 % (2.0-8.0); NEUTROPHILS % 50.9 % (40.0-76.0); PLATELET 184 x1000/uL (130-400); RED BLOOD CELL COUNT 4.19 mill/uL (4.7-6.1); RED CELL DISTRIBUTION WIDTH 15.3 % (11.6-14.6)
[2019-09-10] MEDS: BUDESONIDE 0.5MG/2ML NEB HHN SCH ×2 (08:25→20:52)
[2019-09-10] MEDS: CARVEDILOL 6.25 MG TABLET PO SCH ×2 (09:00→20:51)
[2019-09-10] MEDS: SACUBITRIL/VALSARTAN 24/26 TAB PO SCH ×3 (09:00→20:50)
[2019-09-10] MEDS: SPIRONOLACTONE 50MG TABLET PO SCH (10:12)
[2019-09-10] MEDS: CLOPIDOGREL 75MG TABLET PO SCH (10:13)
[2019-09-10] MEDS: POTASSIUM CHLORIDE 20MEQ TABLET SR PO SCH (10:13)
[2019-09-10] MEDS: FUROSEMIDE 40MG TABLET PO SCH ×2 (10:13→17:42)
[2019-09-10 12:00] VITALS: BP_SYST 126; BP_SYST 130; BP_DIAS 80; BP_DIAS 82
[2019-09-10] MEDS ORDERED: IOHEXOL-350 100 ML BOTTLE ONE (12:34)
[2019-09-10] MEDS: ASPIRIN 81MG EC TABLET PO SCH (14:22)
[2019-09-10 16:00] VITALS: BP_SYST 140; BP_SYST 142; BP_DIAS 100
[2019-09-10 20:00] VITALS: BP 138/90
[2019-09-10] MEDS: ATORVASTATIN CALCIUM 40MG TABLET PO SCH (20:50)
[2019-09-10] MEDS ORDERED: SODIUM BICARBONATE 50 MEQ in DEXT 5%/0.45% NACL 1000ML 1,000 ML IV SCH (21:30)
[2019-09-11] VITALS: BP 126/56
[2019-09-11] MEDS: IPRATROPIUM/ALBUTEROL 0.5-3(2.5)MG/3ML NEB HHN PRN ×3 (00:28→17:23)
[2019-09-11] MEDS: ACETYLCYSTEINE 100MG/ML 10% VIAL 4ML INH SCH ×3 (00:28→17:23)
[2019-09-11 04:00] VITALS: BP_SYST 105; BP_SYST 113; BP_SYST 115; BP_DIAS 77; BP_DIAS 83; BP_DIAS 87
[2019-09-11] MEDS: ACETAMINOPHEN 650MG/20.3ML UDC PO PRN (04:45)
[2019-09-11 05:55] LABS: INR 1.1; PROTHROMBIN TIME 10.9 sec (9.6-11.0)
[2019-09-11 06:04] LABS: HEMATOCRIT 42.5 % (42.0-52.0); HEMOGLOBIN 14.3 g/dL (14.0-18.0); MEAN CORPUSCULAR HEMOGLOBIN 31.6 pg (28.0-32.0); MEAN CORPUSCULAR VOLUME 93.8 fL (80.0-94.0); PLATELET 200 x1000/uL (130-400); RED BLOOD CELL COUNT 4.53 mill/uL (4.7-6.1); RED CELL DISTRIBUTION WIDTH 15.2 % (11.6-14.6)
[2019-09-11 08:00] VITALS: BP 101/70
[2019-09-11] MEDS: CARVEDILOL 6.25 MG TABLET PO SCH ×2 (08:29→21:00)
[2019-09-11] MEDS: SPIRONOLACTONE 50MG TABLET PO SCH (08:45)
[2019-09-11] MEDS: POTASSIUM CHLORIDE 20MEQ TABLET SR PO SCH (08:45)
[2019-09-11] MEDS: CLOPIDOGREL 75MG TABLET PO SCH (08:45)
[2019-09-11] MEDS: FUROSEMIDE 40MG TABLET PO SCH ×2 (08:45→17:41)
[2019-09-11] MEDS: ASPIRIN 81MG EC TABLET PO SCH (08:45)
[2019-09-11] MEDS: SACUBITRIL/VALSARTAN 24/26 TAB PO SCH ×2 (08:57→21:00)
[2019-09-11 09:22] LABS: BG BASE EXCESS -3.7 mmol/L (-2.0-2.0); BG CARBOXYHEMOGLOBIN 0.5 % (0.5-1.5); BG DEOXYHEMOGLOBIN 3.6 % (0.0-5.0); BG FRACTION INSPIRED OXYGEN 21; BG HCO3 ACT 20.7 mmol/L (22.0-26.0); BG METHEMOGLOBIN 0.3 % (0.0-1.5); BG OXYGEN SATURATION 96.4 % (92.0-98.5); BG OXYHEMOGLOBIN 95.6 % (94.0-97.0); BG PCO2 35.4 mmHg (35.0-45.0); BG PH 7.384 (7.350-7.450); BG PO2 89.6 mmHg (75.0-100.0); BG SAMPLE SITE RIGHT RADIAL; BG TOTAL HEMOGLOBIN 14.4 g/dL (12.0-18.0); BG VENT MODE ROOM AIR
[2019-09-11] MEDS: BUDESONIDE 0.5MG/2ML NEB HHN SCH ×2 (10:17→21:32)
[2019-09-11 12:00] VITALS: BP_SYST 111; BP_SYST 115; BP_SYST 130; BP_DIAS 79; BP_DIAS 84; BP_DIAS 91
[2019-09-11 16:00] VITALS: BP 137/87
[2019-09-11 20:00] VITALS: BP 113/78
[2019-09-11] MEDS: DEXT 5%/0.9% NACL 1,000 ML IV SCH (21:47)
[2019-09-11] MEDS: ATORVASTATIN CALCIUM 40MG TABLET PO SCH (21:47)
[2019-09-12] VITALS (31 sets, daily range): BP systolic 99–174; BP diastolic 51–113
[2019-09-12 06:31] LABS: HEMATOCRIT 42.7 % (42.0-52.0); HEMOGLOBIN 14.3 g/dL (14.0-18.0); MEAN CORPUSCULAR HEMOGLOBIN 31.5 pg (28.0-32.0); MEAN CORPUSCULAR VOLUME 94.4 fL (80.0-94.0); RED BLOOD CELL COUNT 4.53 mill/uL (4.7-6.1); RED CELL DISTRIBUTION WIDTH 15.6 % (11.6-14.6)
[2019-09-12] MEDS ORDERED: LIDOCAINE HCL 1% 20ML VIAL (Pyxis) INJ ONE ×2 (07:19→11:23)
[2019-09-12] MEDS ORDERED: BACITRACIN 15GM TUBE TOP ONE ×2 (07:19→11:23)
[2019-09-12] MEDS ORDERED: HEPARIN SODIUM 1,000 UNIT/1ML VIAL IV ONE ×2 (07:20→11:23)
[2019-09-12] MEDS ORDERED: NORMAL SALINE 0.9% 10 ML SYR ONE (07:20)
[2019-09-12] MEDS ORDERED: THROMBIN (BOVINE) 5000 UNITS/VIAL TOP ONE ×2 (07:20→11:23)
[2019-09-12] MEDS ORDERED: BUPIVACAINE HCL 0.5% (5MG/ML) 50ML ONE (07:20)
[2019-09-12] MEDS ORDERED: BACITRACIN 50,000 UNITS/VIAL ONE ×2 (07:21→11:24)
[2019-09-12] MEDS ORDERED: FENTANYL CITRATE/PF 50MCG/ML 2ML VIAL ONE (07:35)
[2019-09-12] MEDS ORDERED: MIDAZOLAM HCL 2 MG/2 ML VIAL ONE (07:35)
[2019-09-12] MEDS ORDERED: PROPOFOL 200MG/20ML VIAL IV ONE (07:36)
[2019-09-12] MEDS ORDERED: LIDOCAINE HCL/PF 1% 10 MG/ML 5ML VIAL ONE (07:41)
[2019-09-12] MEDS ORDERED: ROCURONIUM BROMIDE 10MG/ML VIAL 5ML IV ONE (07:43)
[2019-09-12] MEDS ORDERED: SUCCINYLCHOLINE CHLORIDE 200MG/10ML IV ONE (07:59)
[2019-09-12] MEDS ORDERED: ETOMIDATE 2MG/ML 10ML VIAL IV ONE (08:00)
[2019-09-12] MEDS ORDERED: NICARDIPINE 40MG/200ML PREMIX 200 ML IV PRN (08:00)
[2019-09-12 08:15] LABS: PLATELET 184 x1000/uL (130-400)
[2019-09-12] MEDS: BUDESONIDE 0.5MG/2ML NEB HHN SCH (08:20)
[2019-09-12] MEDS ORDERED: NICARDIPINE 50 MG in SODIUM CHLORIDE 0.9% 230 ML IV PRN (08:30)
[2019-09-12] MEDS: POTASSIUM CHLORIDE 20MEQ TABLET SR PO SCH (08:56)
[2019-09-12] MEDS: SPIRONOLACTONE 50MG TABLET PO SCH (08:56)
[2019-09-12] MEDS: SACUBITRIL/VALSARTAN 24/26 TAB PO SCH ×2 (08:56→21:49)
[2019-09-12] MEDS: CARVEDILOL 6.25 MG TABLET PO SCH ×2 (08:56→21:37)
[2019-09-12] MEDS: ASPIRIN 81MG EC TABLET PO SCH (08:56)
[2019-09-12] MEDS: FUROSEMIDE 40MG TABLET PO SCH ×2 (08:56→16:24)
[2019-09-12] MEDS: DEXT 5%/0.9% NACL 1,000 ML IV SCH ×2 (10:32→16:25)
[2019-09-12] MEDS ORDERED: BUPIVACAINE HCL/PF 0.5% (5MG/ML) 10ML ONE (11:24)
[2019-09-12] MEDS ORDERED: GLYCOPYRROLATE 0.2 MG/ML 2ML VIAL ONE (12:27)
[2019-09-12] MEDS ORDERED: CEFAZOLIN SODIUM 1000MG/VIAL ONE (12:51)
[2019-09-12] MEDS ORDERED: HEPARIN 1000 UNITS/ML 10ML ONE (13:02)
[2019-09-12] MEDS ORDERED: NEOSTIGMINE METHYLSULFATE 1MG/ML 10 ML VIAL ONE (13:06)
[2019-09-12] MEDS ORDERED: DEXAMETHASONE 4MG/ML 1ML VIAL ONE (13:06)
[2019-09-12] MEDS ORDERED: PROTAMINE SULFATE 10MG/ML VIAL 5ML IV ONE (13:38)
[2019-09-12] MEDS ORDERED: HYDRALAZINE 20MG/ML VIAL ONE ×2 (13:53→14:27)
[2019-09-12] MEDS ORDERED: FLUMAZENIL 0.1 MG/ML 5ML VIAL IV ONE (14:24)
[2019-09-12] MEDS: MORPHINE SULFATE 2 MG/ML CPJ (NOT FOR IM USE) IV PRN ×3 (15:58→22:36)
[2019-09-12] MEDS ORDERED: LIDOCAINE HCL 2% 5ML SYRINGE IV SCH (21:00)
[2019-09-12] MEDS: LIDOCAINE 2G PREMIX 500 ML IV SCH (21:20)
[2019-09-12] MEDS: ATORVASTATIN CALCIUM 40MG TABLET PO SCH (21:37)
[2019-09-13] VITALS (92 sets, daily range): BP systolic 52–204; BP diastolic 23–113
[2019-09-13] MEDS: DIPHENHYDRAMINE 50MG/ML VIAL IV PRN (00:45)
[2019-09-13] MEDS: LORAZEPAM 2MG/ML CPJ IV PRN ×2 (01:20→10:13)
[2019-09-13 03:03] LABS: BG BASE EXCESS -9.2 mmol/L (-2.0-2.0); BG CARBOXYHEMOGLOBIN 0.3 % (0.5-1.5); BG DEOXYHEMOGLOBIN 0.9 % (0.0-5.0); BG FRACTION INSPIRED OXYGEN 100; BG HCO3 ACT 17.9 mmol/L (22.0-26.0); BG METHEMOGLOBIN 0.4 % (0.0-1.5); BG OXYGEN SATURATION 99.1 % (92.0-98.5); BG OXYHEMOGLOBIN 98.4 % (94.0-97.0); BG PCO2 43.3 mmHg (35.0-45.0); BG PH 7.235 (7.350-7.450); BG PO2 208.7 mmHg (75.0-100.0); BG SAMPLE SITE A-LINE; BG TIDAL VOLUME(mL) 500 mL; BG TOTAL HEMOGLOBIN 13.7 g/dL (12.0-18.0); BG VENT MODE VENT - A/C; BG VENT RATE 14 set
[2019-09-13] MEDS ORDERED: SODIUM BICARBONATE 8.4% 1 MEQ/ML 50ML SYR IV NR (03:15)
[2019-09-13] MEDS: NOREPINEPHRINE 4 MG in DEXT 5% WATER 246 ML IV PRN ×3 (05:11→18:14)
[2019-09-13] MEDS: MORPHINE SULFATE 2 MG/ML CPJ (NOT FOR IM USE) IV PRN (05:15)
[2019-09-13] MEDS ORDERED: SODIUM BICARBONATE 4% (2.4MEQ) 5ML VIAL IV ONE (07:40)
[2019-09-13] MEDS ORDERED: LIDOCAINE HCL 1% 20ML VIAL (Pyxis) INJ ONE (07:40)
[2019-09-13 08:01] LABS: BASOPHILS % 0.1 % (0.0-2.0); HEMOGLOBIN. 11.5 g/dL (14.0-18.0); LYMPHOCYTES % 8.3 % (20.0-50.0); MEAN CORPUSCULAR HEMOGLOBIN 31.7 pg (28.0-32.0); MEAN PLATELET VOLUME 9.3 fl (7.4-10.4); MONOCYTES % 6.7 % (2.0-8.0); NEUTROPHILS % 84.9 % (40.0-76.0); PLATELET 256 x1000/uL (130-400); RED BLOOD CELL COUNT 3.61 mill/uL (4.7-6.1); RED CELL DISTRIBUTION WIDTH 15.1 % (11.6-14.6)
[2019-09-13 08:15] LABS: CHLORIDE 112 mEq/L (98-107)
[2019-09-13 09:08] LABS: BG BASE EXCESS -5.4 mmol/L (-2.0-2.0); BG CARBOXYHEMOGLOBIN 0.3 % (0.5-1.5); BG DEOXYHEMOGLOBIN 0.8 % (0.0-5.0); BG FRACTION INSPIRED OXYGEN 60; BG HCO3 ACT 16.3 mmol/L (22.0-26.0); BG METHEMOGLOBIN 0.1 % (0.0-1.5); BG OXYGEN SATURATION 99.2 % (92.0-98.5); BG OXYHEMOGLOBIN 98.8 % (94.0-97.0); BG PCO2 22.4 mmHg (35.0-45.0); BG PO2 248.6 mmHg (75.0-100.0); BG SAMPLE SITE A-LINE; BG TIDAL VOLUME(mL) 500 mL; BG TOTAL HEMOGLOBIN 11.9 g/dL (12.0-18.0); BG VENT MODE VENT - A/C; BG VENT RATE 18 set
[2019-09-13] MEDS ORDERED: LORAZEPAM 2MG/ML CPJ IV PRN (10:15)
[2019-09-13] MEDS: ASPIRIN 81MG EC TABLET PO SCH (11:14)
[2019-09-13] MEDS: MAGNESIUM OXIDE 400MG TABLET NG SCH (11:14)
[2019-09-13] MEDS ORDERED: MAGNESIUM 2 G PREMIX 50 ML IV SCH (11:30)
[2019-09-13 11:54] LABS: CREATINE KINASE MB FRACTION 6.1 ng/mL (0.5-3.6)
[2019-09-13] MEDS ORDERED: ETOMIDATE 2MG/ML 10ML VIAL IV ONE (13:53)
[2019-09-13] MEDS ORDERED: SUCCINYLCHOLINE CHLORIDE 200MG/10ML IV ONE (13:53)
[2019-09-13] MEDS: PROPOFOL 10MG/ML 100ML 100 ML IV PRN (15:41)
[2019-09-13 16:52] LABS: BG BASE EXCESS -3.4 mmol/L (-2.0-2.0); BG CARBOXYHEMOGLOBIN 0.3 % (0.5-1.5); BG DEOXYHEMOGLOBIN 4.2 % (0.0-5.0); BG HCO3 ACT 19.7 mmol/L (22.0-26.0); BG METHEMOGLOBIN 0.4 % (0.0-1.5); BG OXYGEN SATURATION 95.8 % (92.0-98.5); BG OXYHEMOGLOBIN 95.1 % (94.0-97.0); BG PCO2 29.8 mmHg (35.0-45.0); BG PH 7.438 (7.350-7.450); BG PO2 80.9 mmHg (75.0-100.0); BG SAMPLE SITE RIGHT BRACHIAL; BG TIDAL VOLUME(mL) 500 mL; BG TOTAL HEMOGLOBIN 12.2 g/dL (12.0-18.0); BG VENT MODE VENT - A/C; BG VENT RATE 14 set
[2019-09-13] MEDS: DEXT 5%/0.9% NACL 1,000 ML IV SCH (18:18)
[2019-09-13] MEDS: LIDOCAINE 2G PREMIX 500 ML IV SCH (18:54)
[2019-09-13] MEDS: ATORVASTATIN CALCIUM 40MG TABLET PO SCH (20:55)
[2019-09-14] VITALS (84 sets, daily range): BP systolic 77–164; BP diastolic 49–113
[2019-09-14] MEDS: PROPOFOL 10MG/ML 100ML 100 ML IV PRN ×2 (00:40→07:15)
[2019-09-14 07:22] LABS: MEAN CORPUSCULAR HEMOGLOBIN 31.2 pg (28.0-32.0); MEAN CORPUSCULAR VOLUME 94.4 fL (80.0-94.0); PLATELET 191 x1000/uL (130-400); RED BLOOD CELL COUNT 3.62 mill/uL (4.7-6.1)
[2019-09-14 07:29] LABS: HEMATOCRIT 34.2 % (42.0-52.0); HEMOGLOBIN 11.3 g/dL (14.0-18.0)
[2019-09-14] MEDS: ASPIRIN 81MG EC TABLET PO SCH (08:01)
[2019-09-14] MEDS: FUROSEMIDE 40MG TABLET GT SCH (08:01)
[2019-09-14] MEDS: MAGNESIUM OXIDE 400MG TABLET NG SCH (08:01)
[2019-09-14 08:40] LABS: CHLORIDE 102 mEq/L (98-107)
[2019-09-14 08:49] LABS: BG BASE EXCESS 0.5 mmol/L (-2.0-2.0); BG CARBOXYHEMOGLOBIN 0.3 % (0.5-1.5); BG DEOXYHEMOGLOBIN 1.4 % (0.0-5.0); BG FRACTION INSPIRED OXYGEN 40; BG HCO3 ACT 24.5 mmol/L (22.0-26.0); BG METHEMOGLOBIN 0.4 % (0.0-1.5); BG OXYGEN SATURATION 98.6 % (92.0-98.5); BG OXYHEMOGLOBIN 97.9 % (94.0-97.0); BG PCO2 37.3 mmHg (35.0-45.0); BG PH 7.436 (7.350-7.450); BG PO2 127.2 mmHg (75.0-100.0); BG SAMPLE SITE RIGHT RADIAL; BG TIDAL VOLUME(mL) 500 mL; BG TOTAL HEMOGLOBIN 12.5 g/dL (12.0-18.0); BG VENT MODE VENT - A/C; BG VENT RATE 14 set
[2019-09-14 08:50] LABS: CREATINE KINASE 82 IU/L (39-308)
[2019-09-14] MEDS: LIDOCAINE 2G PREMIX 500 ML IV SCH (09:34)
[2019-09-14] MEDS: NOREPINEPHRINE 4 MG in DEXT 5% WATER 246 ML IV PRN (10:58)
[2019-09-14 13:41] LABS: BG BASE EXCESS 1.6 mmol/L (-2.0-2.0); BG CARBOXYHEMOGLOBIN 0.4 % (0.5-1.5); BG DEOXYHEMOGLOBIN 2.3 % (0.0-5.0); BG FRACTION INSPIRED OXYGEN 40; BG HCO3 ACT 24.8 mmol/L (22.0-26.0); BG METHEMOGLOBIN 0.4 % (0.0-1.5); BG OXYGEN SATURATION 97.7 % (92.0-98.5); BG OXYHEMOGLOBIN 96.9 % (94.0-97.0); BG PCO2 34.5 mmHg (35.0-45.0); BG PH 7.475 (7.350-7.450); BG PO2 102.4 mmHg (75.0-100.0); BG PRESSURE SUPPORT 10; BG SAMPLE SITE RIGHT RADIAL; BG VENT MODE VENT - CPAP
[2019-09-14] MEDS ORDERED: LORAZEPAM 2MG/ML CPJ IV NR (16:00)
[2019-09-14] MEDS: DEXT 5%/0.9% NACL 1,000 ML IV SCH (18:23)
[2019-09-14] MEDS ORDERED: PROPOFOL 10MG/ML 100ML 100 ML IV PRN (18:30)
[2019-09-14] MEDS: IPRATROPIUM/ALBUTEROL 0.5-3(2.5)MG/3ML NEB HHN PRN (20:22)
[2019-09-14] MEDS: ATORVASTATIN CALCIUM 40MG TABLET PO SCH (21:30)
[2019-09-15] VITALS (77 sets, daily range): BP systolic 78–160; BP diastolic 56–110
[2019-09-15] MEDS: IPRATROPIUM/ALBUTEROL 0.5-3(2.5)MG/3ML NEB HHN PRN ×2 (00:16→04:36)
[2019-09-15] MEDS: NOREPINEPHRINE 4 MG in DEXT 5% WATER 246 ML IV PRN ×2 (03:28→07:05)
[2019-09-15 06:12] LABS: BASOPHILS % 0.3 % (0.0-2.0); HEMATOCRIT. 35.6 % (42.0-52.0); HEMOGLOBIN. 11.8 g/dL (14.0-18.0); LYMPHOCYTES % 16.8 % (20.0-50.0); MEAN CORPUSCULAR HEMOGLOBIN 31.4 pg (28.0-32.0); MEAN CORPUSCULAR VOLUME 94.8 fL (80.0-94.0); MEAN PLATELET VOLUME 8.6 fl (7.4-10.4); MONOCYTES % 10.5 % (2.0-8.0); NEUTROPHILS % 72.4 % (40.0-76.0); PLATELET 182 x1000/uL (130-400); RED BLOOD CELL COUNT 3.76 mill/uL (4.7-6.1); RED CELL DISTRIBUTION WIDTH 14.9 % (11.6-14.6)
[2019-09-15 06:32] LABS: CHLORIDE 104 mEq/L (98-107)
[2019-09-15 07:30] LABS: BG BASE EXCESS -0.7 mmol/L (-2.0-2.0); BG CARBOXYHEMOGLOBIN 0.3 % (0.5-1.5); BG DEOXYHEMOGLOBIN 2.9 % (0.0-5.0); BG FRACTION INSPIRED OXYGEN 40; BG HCO3 ACT 23.1 mmol/L (22.0-26.0); BG METHEMOGLOBIN 0.2 % (0.0-1.5); BG OXYGEN SATURATION 97.1 % (92.0-98.5); BG OXYHEMOGLOBIN 96.6 % (94.0-97.0); BG PCO2 34.9 mmHg (35.0-45.0); BG PH 7.438 (7.350-7.450); BG PO2 95.7 mmHg (75.0-100.0); BG SAMPLE SITE RIGHT BRACHIAL; BG TIDAL VOLUME(mL) 500 mL; BG TOTAL HEMOGLOBIN 11.8 g/dL (12.0-18.0); BG VENT MODE VENT - A/C; BG VENT RATE 14 set
[2019-09-15] MEDS: ASPIRIN 81MG EC TABLET PO SCH (08:09)
[2019-09-15] MEDS: MAGNESIUM OXIDE 400MG TABLET NG SCH (08:09)
[2019-09-15] MEDS: FUROSEMIDE 40MG TABLET GT SCH (08:10)
[2019-09-15] MEDS ORDERED: LIDOCAINE HCL/PF 1% 2ML VIAL ONE (11:55)
[2019-09-15 12:06] LABS: BG BASE EXCESS 1.3 mmol/L (-2.0-2.0); BG CARBOXYHEMOGLOBIN 0.3 % (0.5-1.5); BG DEOXYHEMOGLOBIN 2.2 % (0.0-5.0); BG FRACTION INSPIRED OXYGEN 40; BG HCO3 ACT 24.1 mmol/L (22.0-26.0); BG METHEMOGLOBIN 0.2 % (0.0-1.5); BG OXYGEN SATURATION 97.8 % (92.0-98.5); BG OXYHEMOGLOBIN 97.3 % (94.0-97.0); BG PH 7.482 (7.350-7.450); BG PRESSURE SUPPORT 10; BG SAMPLE SITE RIGHT BRACHIAL; BG VENT MODE VENT - CPAP
[2019-09-15 14:58] LABS: BG BASE EXCESS 2.9 mmol/L (-2.0-2.0); BG DEOXYHEMOGLOBIN 6.2 % (0.0-5.0); BG FRACTION INSPIRED OXYGEN 50; BG METHEMOGLOBIN 0.4 % (0.0-1.5); BG OXYGEN SATURATION 93.8 % (92.0-98.5); BG OXYHEMOGLOBIN 93.4 % (94.0-97.0); BG PCO2 44.5 mmHg (35.0-45.0); BG PH 7.416 (7.350-7.450); BG PO2 70.1 mmHg (75.0-100.0); BG SAMPLE SITE RIGHT RADIAL; BG TOTAL HEMOGLOBIN 12.3 g/dL (12.0-18.0); BG VENT MODE MASK - AEROSOL
[2019-09-15] MEDS ORDERED: MIDODRINE HCL 5MG TABLET PO ONE (15:30)
[2019-09-15] MEDS ORDERED: LORAZEPAM 2MG/ML CPJ IV PRN (16:15)
[2019-09-15] MEDS: DEXT 5%/0.9% NACL 1,000 ML IV SCH (20:08)
[2019-09-15] MEDS: ATORVASTATIN CALCIUM 40MG TABLET PO SCH (20:09)
[2019-09-15] MEDS ORDERED: MIDODRINE HCL 5MG TABLET PO PRN (22:00)
[2019-09-15] MEDS ORDERED: MIDODRINE HCL 5MG TABLET PO SCH (22:00)
[2019-09-15 22:08] LABS: BG BASE EXCESS -2.3 mmol/L (-2.0-2.0); BG CARBOXYHEMOGLOBIN 0.7 % (0.5-1.5); BG DEOXYHEMOGLOBIN 17.6 % (0.0-5.0); BG FRACTION INSPIRED OXYGEN 60; BG HCO3 ACT 20.5 mmol/L (22.0-26.0); BG METHEMOGLOBIN 0.2 % (0.0-1.5); BG OXYGEN SATURATION 82.2 % (92.0-98.5); BG OXYHEMOGLOBIN 81.5 % (94.0-97.0); BG PCO2 29.3 mmHg (35.0-45.0); BG PH 7.462 (7.350-7.450); BG PO2 42.8 mmHg (75.0-100.0); BG SAMPLE SITE LEFT RADIAL; BG TOTAL HEMOGLOBIN 12.6 g/dL (12.0-18.0); BG VENT MODE MASK - AEROSOL
[2019-09-16] VITALS (82 sets, daily range): BP systolic 58–153; BP diastolic 34–104
[2019-09-16 01:12] LABS: BG BILEVEL POS AIRWAY PRESSURE 15/5; BG CARBOXYHEMOGLOBIN 0.3 % (0.5-1.5); BG DEOXYHEMOGLOBIN 1.4 % (0.0-5.0); BG FRACTION INSPIRED OXYGEN 100; BG METHEMOGLOBIN 0.6 % (0.0-1.5); BG OXYGEN SATURATION 98.6 % (92.0-98.5); BG OXYHEMOGLOBIN 97.7 % (94.0-97.0); BG PCO2 33.8 mmHg (35.0-45.0); BG PH 7.487 (7.350-7.450); BG PO2 136.1 mmHg (75.0-100.0); BG SAMPLE SITE RIGHT RADIAL; BG VENT MODE MASK - BIPAP; BG VENT RATE 16 set
[2019-09-16] MEDS: NOREPINEPHRINE 4 MG in DEXT 5% WATER 246 ML IV PRN (02:33)
[2019-09-16 06:06] LABS: HEMATOCRIT 35.3 % (42.0-52.0); HEMOGLOBIN 11.6 g/dL (14.0-18.0); MEAN CORPUSCULAR HEMOGLOBIN 31.1 pg (28.0-32.0); MEAN CORPUSCULAR VOLUME 94.6 fL (80.0-94.0); PLATELET 184 x1000/uL (130-400); RED BLOOD CELL COUNT 3.73 mill/uL (4.7-6.1)
[2019-09-16] MEDS ORDERED: NOREPINEPHRINE 16 MG in DEXT 5% WATER 246 ML IV PRN (07:59)
[2019-09-16 08:53] LABS: BG BASE EXCESS 0.3 mmol/L (-2.0-2.0); BG BILEVEL POS AIRWAY PRESSURE 15/5; BG CARBOXYHEMOGLOBIN 0.3 % (0.5-1.5); BG DEOXYHEMOGLOBIN 0.6 % (0.0-5.0); BG FRACTION INSPIRED OXYGEN 60; BG HCO3 ACT 23.6 mmol/L (22.0-26.0); BG METHEMOGLOBIN 0.4 % (0.0-1.5); BG OXYGEN SATURATION 99.4 % (92.0-98.5); BG OXYHEMOGLOBIN 98.7 % (94.0-97.0); BG PCO2 33.3 mmHg (35.0-45.0); BG PH 7.468 (7.350-7.450); BG PO2 296.3 mmHg (75.0-100.0); BG SAMPLE SITE RIGHT RADIAL; BG VENT MODE MASK - BIPAP; BG VENT RATE 16 set
[2019-09-16] MEDS: ASPIRIN 81MG EC TABLET PO SCH (10:13)
[2019-09-16] MEDS: MAGNESIUM OXIDE 400MG TABLET NG SCH (10:14)
[2019-09-16] MEDS: FUROSEMIDE 40MG TABLET NG SCH (10:14)
[2019-09-16] MEDS: METHYLPREDNISOLONE SOD SUCC 40 MG/ML VIAL IV SCH ×2 (13:13→20:08)
[2019-09-16] MEDS: MIDODRINE HCL 5MG TABLET PO SCH ×2 (13:14→21:28)
[2019-09-16] MEDS: IPRATROPIUM/ALBUTEROL 0.5-3(2.5)MG/3ML NEB HHN PRN (15:05)
[2019-09-16] MEDS: ACETYLCYSTEINE 100MG/ML 10% VIAL 4ML INH SCH (15:05)
[2019-09-16] MEDS: ATORVASTATIN CALCIUM 40MG TABLET PO SCH (20:08)
[2019-09-16] MEDS: DEXT 5%/0.9% NACL 1,000 ML IV SCH (20:08)
[2019-09-16] MEDS: ENOXAPARIN 30MG/0.3ML SYR SUBCUT SCH (20:09)
[2019-09-16] MEDS: IPRATROPIUM/ALBUTEROL 0.5-3(2.5)MG/3ML NEB HHN SCH (20:35)
[2019-09-17] VITALS (82 sets, daily range): BP systolic 70–144; BP diastolic 54–97
[2019-09-17] MEDS: ACETYLCYSTEINE 100MG/ML 10% VIAL 4ML INH SCH ×3 (03:11→13:48)
[2019-09-17] MEDS: IPRATROPIUM/ALBUTEROL 0.5-3(2.5)MG/3ML NEB HHN SCH ×4 (03:11→20:13)
[2019-09-17] MEDS: METHYLPREDNISOLONE SOD SUCC 40 MG/ML VIAL IV SCH ×3 (05:07→20:44)
[2019-09-17] MEDS: MIDODRINE HCL 5MG TABLET PO SCH ×3 (05:07→21:01)
[2019-09-17 06:28] LABS: HEMOGLOBIN. 9.9 g/dL (14.0-18.0); MEAN CORPUSCULAR VOLUME 93.6 fL (80.0-94.0); MEAN PLATELET VOLUME 9.2 fl (7.4-10.4); PLATELET 192 x1000/uL (130-400); RED BLOOD CELL COUNT 3.21 mill/uL (4.7-6.1); RED CELL DISTRIBUTION WIDTH 15.1 % (11.6-14.6)
[2019-09-17 06:36] LABS: CHLORIDE 107 mEq/L (98-107)
[2019-09-17] MEDS: ASPIRIN 81MG EC TABLET PO SCH (08:27)
[2019-09-17] MEDS: FUROSEMIDE 40MG TABLET NG SCH (08:27)
[2019-09-17] MEDS: MAGNESIUM OXIDE 400MG TABLET NG SCH (08:27)
[2019-09-17] MEDS: ENOXAPARIN 30MG/0.3ML SYR SUBCUT SCH ×2 (08:28→20:44)
[2019-09-17 09:03] LABS: BG BASE EXCESS -1.7 mmol/L (-2.0-2.0); BG CARBOXYHEMOGLOBIN 0.3 % (0.5-1.5); BG FRACTION INSPIRED OXYGEN 28; BG HCO3 ACT 22.7 mmol/L (22.0-26.0); BG METHEMOGLOBIN 0.4 % (0.0-1.5); BG OXYHEMOGLOBIN 94.3 % (94.0-97.0); BG PH 7.406 (7.350-7.450); BG PO2 77.9 mmHg (75.0-100.0); BG SAMPLE SITE LEFT BRACHIAL; BG TOTAL HEMOGLOBIN 10.7 g/dL (12.0-18.0); BG VENT MODE NASAL CANNULA
[2019-09-17] MEDS ORDERED: BISACODYL 10MG SUPP PR PRN (11:00)
[2019-09-17 13:58] LABS: PLATELET ESTIMATE NORMAL
[2019-09-17] MEDS: ATORVASTATIN CALCIUM 40MG TABLET PO SCH (20:43)
[2019-09-17] MEDS: DEXT 5%/0.9% NACL 1,000 ML IV SCH (20:44)
[2019-09-18] VITALS (68 sets, daily range): BP systolic 93–183; BP diastolic 38–128
[2019-09-18] MEDS: METHYLPREDNISOLONE SOD SUCC 40 MG/ML VIAL IV SCH ×3 (05:53→22:33)
[2019-09-18] MEDS: MIDODRINE HCL 5MG TABLET PO SCH (05:54)
[2019-09-18 06:37] LABS: HEMATOCRIT. 27.2 % (42.0-52.0); HEMOGLOBIN. 8.8 g/dL (14.0-18.0); MEAN CORPUSCULAR HEMOGLOBIN 30.7 pg (28.0-32.0); MEAN CORPUSCULAR VOLUME 94.7 fL (80.0-94.0); MEAN PLATELET VOLUME 9.4 fl (7.4-10.4); PLATELET 206 x1000/uL (130-400); RED BLOOD CELL COUNT 2.87 mill/uL (4.7-6.1); RED CELL DISTRIBUTION WIDTH 15.2 % (11.6-14.6)
[2019-09-18 06:45] LABS: CHLORIDE 113 mEq/L (98-107)
[2019-09-18] MEDS: ACETYLCYSTEINE 100MG/ML 10% VIAL 4ML INH SCH ×3 (10:04→16:21)
[2019-09-18] MEDS: IPRATROPIUM/ALBUTEROL 0.5-3(2.5)MG/3ML NEB HHN SCH ×4 (10:04→20:56)
[2019-09-18] MEDS: ENOXAPARIN 30MG/0.3ML SYR SUBCUT SCH ×2 (10:26→22:33)
[2019-09-18] MEDS: MAGNESIUM OXIDE 400MG TABLET NG SCH (10:38)
[2019-09-18] MEDS: FUROSEMIDE 40MG TABLET NG SCH (10:38)
[2019-09-18] MEDS: ASPIRIN 81MG EC TABLET PO SCH (10:38)
[2019-09-18] MEDS: DIPHENHYDRAMINE 50MG/ML VIAL IV PRN (11:57)
[2019-09-18] MEDS ORDERED: DEXTROSE 50% WATER 50ML SYRINGE IV PRN (13:00)
[2019-09-18] MEDS ORDERED: INSULIN LISPRO 100 UNITS/ML SUBCUT SCH (13:00)
[2019-09-18] MEDS ORDERED: BLOOD SUGAR DIAGNOSTIC STRIP TEST SCH (13:00)
[2019-09-18 13:19] LABS: PLATELET ESTIMATE NORMAL
[2019-09-18] MEDS: INSULIN LISPRO 100 UNITS/ML SUBCUT SCH (18:00)
[2019-09-18] MEDS: BLOOD SUGAR DIAGNOSTIC STRIP TEST SCH (18:00)
[2019-09-18] MEDS: ATORVASTATIN CALCIUM 40MG TABLET PO SCH (22:33)
[2019-09-19] VITALS (30 sets, daily range): BP systolic 116–191; BP diastolic 52–126
[2019-09-19] MEDS: ACETYLCYSTEINE 100MG/ML 10% VIAL 4ML INH SCH ×3 (02:00→15:16)
[2019-09-19] MEDS: IPRATROPIUM/ALBUTEROL 0.5-3(2.5)MG/3ML NEB HHN SCH ×4 (02:01→21:05)
[2019-09-19] MEDS: INSULIN LISPRO 100 UNITS/ML SUBCUT SCH ×4 (06:00→17:25)
[2019-09-19] MEDS: BLOOD SUGAR DIAGNOSTIC STRIP TEST SCH ×4 (06:00→17:25)
[2019-09-19 06:55] LABS: HEMATOCRIT. 27.9 % (42.0-52.0); HEMOGLOBIN. 9.2 g/dL (14.0-18.0); MEAN CORPUSCULAR HEMOGLOBIN 31.1 pg (28.0-32.0); MEAN CORPUSCULAR VOLUME 94.7 fL (80.0-94.0); PLATELET 233 x1000/uL (130-400); RED BLOOD CELL COUNT 2.95 mill/uL (4.7-6.1); RED CELL DISTRIBUTION WIDTH 14.9 % (11.6-14.6)
[2019-09-19 07:24] LABS: CHLORIDE 114 mEq/L (98-107)
[2019-09-19] MEDS: METHYLPREDNISOLONE SOD SUCC 40 MG/ML VIAL IV SCH ×2 (07:39→11:31)
[2019-09-19] MEDS: MAGNESIUM OXIDE 400MG TABLET NG SCH (08:29)
[2019-09-19] MEDS: ASPIRIN 81MG EC TABLET PO SCH (08:29)
[2019-09-19] MEDS: FUROSEMIDE 40MG TABLET NG SCH (08:29)
[2019-09-19] MEDS: ENOXAPARIN 30MG/0.3ML SYR SUBCUT SCH (08:30)
[2019-09-19] MEDS ORDERED: LIDOCAINE HCL/PF 1% 2ML VIAL ONE (09:48)
[2019-09-19 10:48] LABS: PLATELET ESTIMATE NORMAL
[2019-09-19 16:53] LABS: BG BASE EXCESS 1.9 mmol/L (-2.0-2.0); BG CARBOXYHEMOGLOBIN 0.6 % (0.5-1.5); BG FRACTION INSPIRED OXYGEN 21; BG HCO3 ACT 26.2 mmol/L (22.0-26.0); BG METHEMOGLOBIN 0.3 % (0.0-1.5); BG OXYGEN SATURATION 87.9 % (92.0-98.5); BG OXYHEMOGLOBIN 87.1 % (94.0-97.0); BG PCO2 39.8 mmHg (35.0-45.0); BG PH 7.436 (7.350-7.450); BG PO2 53.1 mmHg (75.0-100.0); BG SAMPLE SITE RIGHT BRACHIAL; BG TOTAL HEMOGLOBIN 12.2 g/dL (12.0-18.0); BG VENT MODE ROOM AIR
[2019-09-19] MEDS: CLOPIDOGREL 75MG TABLET PO SCH (17:17)
[2019-09-19] MEDS: ATORVASTATIN CALCIUM 40MG TABLET PO SCH (22:14)
[2019-09-19] MEDS: HYDRALAZINE 20MG/ML VIAL IV PRN (23:21)
[2019-09-20] VITALS (27 sets, daily range): BP systolic 131–164; BP diastolic 27–111
[2019-09-20] MEDS: METHYLPREDNISOLONE SOD SUCC 40 MG/ML VIAL IV SCH ×2 (00:30→12:24)
[2019-09-20] MEDS: IPRATROPIUM/ALBUTEROL 0.5-3(2.5)MG/3ML NEB HHN SCH ×4 (00:51→21:11)
[2019-09-20] MEDS: ACETYLCYSTEINE 100MG/ML 10% VIAL 4ML INH SCH (00:51)
[2019-09-20] MEDS: INSULIN LISPRO 100 UNITS/ML SUBCUT SCH ×3 (06:00→17:34)
[2019-09-20] MEDS: BLOOD SUGAR DIAGNOSTIC STRIP TEST SCH ×3 (06:56→17:35)
[2019-09-20 06:58] LABS: HEMOGLOBIN. 9.8 g/dL (14.0-18.0); MEAN CORPUSCULAR HEMOGLOBIN 31.5 pg (28.0-32.0); MEAN CORPUSCULAR VOLUME 93.8 fL (80.0-94.0); MEAN PLATELET VOLUME 9.1 fl (7.4-10.4); PLATELET 271 x1000/uL (130-400); RED BLOOD CELL COUNT 3.09 mill/uL (4.7-6.1); RED CELL DISTRIBUTION WIDTH 15.2 % (11.6-14.6)
[2019-09-20] MEDS: MAGNESIUM OXIDE 400MG TABLET NG SCH (08:04)
[2019-09-20] MEDS: ASPIRIN 81MG EC TABLET PO SCH (08:04)
[2019-09-20 08:05] LABS: CHLORIDE 111 mEq/L (98-107)
[2019-09-20] MEDS: CLOPIDOGREL 75MG TABLET PO SCH (08:05)
[2019-09-20] MEDS: FUROSEMIDE 40MG TABLET NG SCH (08:05)
[2019-09-20] MEDS: HYDRALAZINE 20MG/ML VIAL IV PRN ×2 (08:55→20:53)
[2019-09-20] MEDS ORDERED: HYDRALAZINE 20MG/ML VIAL IV SCH (11:00)
[2019-09-20] MEDS: ACETAMINOPHEN 650MG/20.3ML UDC PO PRN (11:11)
[2019-09-20] MEDS ORDERED: FUROSEMIDE 40MG/4ML VIAL IVP SCH (11:15)
[2019-09-20] MEDS ORDERED: LIDOCAINE HCL/PF 1% 2ML VIAL ONE (11:44)
[2019-09-20 12:20] LABS: BG BASE EXCESS 1.8 mmol/L (-2.0-2.0); BG CARBOXYHEMOGLOBIN 0.5 % (0.5-1.5); BG DEOXYHEMOGLOBIN 9.9 % (0.0-5.0); BG FRACTION INSPIRED OXYGEN 21; BG HCO3 ACT 24.4 mmol/L (22.0-26.0); BG METHEMOGLOBIN 0.2 % (0.0-1.5); BG OXYHEMOGLOBIN 89.4 % (94.0-97.0); BG PCO2 31.8 mmHg (35.0-45.0); BG PH 7.503 (7.350-7.450); BG PO2 56.6 mmHg (75.0-100.0); BG SAMPLE SITE RIGHT RADIAL; BG TOTAL HEMOGLOBIN 11.9 g/dL (12.0-18.0); BG VENT MODE ROOM AIR
[2019-09-20] MEDS ORDERED: ENALAPRIL 1.25MG/ML VIAL 1ML IV PRN (12:30)
[2019-09-20] MEDS: NITROGLYCERIN OINT 1GM/INCH UDPKT TD SCH ×2 (17:57→22:03)
[2019-09-20 18:11] LABS: PLATELET ESTIMATE NORMAL
[2019-09-20] MEDS: ATORVASTATIN CALCIUM 40MG TABLET PO SCH (20:53)
[2019-09-21] VITALS (24 sets, daily range): BP systolic 89–135; BP diastolic 57–92
[2019-09-21] MEDS: METHYLPREDNISOLONE SOD SUCC 40 MG/ML VIAL IV SCH (00:37)
[2019-09-21] MEDS: ACETYLCYSTEINE 100MG/ML 10% VIAL 4ML INH SCH ×3 (01:20→14:36)
[2019-09-21] MEDS: IPRATROPIUM/ALBUTEROL 0.5-3(2.5)MG/3ML NEB HHN SCH ×4 (01:21→21:35)
[2019-09-21] MEDS: INSULIN LISPRO 100 UNITS/ML SUBCUT SCH ×3 (03:27→12:00)
[2019-09-21] MEDS: NITROGLYCERIN OINT 1GM/INCH UDPKT TD SCH ×4 (05:18→21:14)
[2019-09-21] MEDS: BLOOD SUGAR DIAGNOSTIC STRIP TEST SCH ×4 (05:38→17:23)
[2019-09-21 06:43] LABS: CHLORIDE 108 mEq/L (98-107)
[2019-09-21 06:52] LABS: HEMATOCRIT. 29.9 % (42.0-52.0); MEAN CORPUSCULAR HEMOGLOBIN 31.3 pg (28.0-32.0); MEAN CORPUSCULAR VOLUME 93.7 fL (80.0-94.0); RED BLOOD CELL COUNT 3.19 mill/uL (4.7-6.1); RED CELL DISTRIBUTION WIDTH 15.8 % (11.6-14.6)
[2019-09-21 08:55] LABS: PLATELET 333 x1000/uL (130-400)
[2019-09-21 08:58] LABS: NUCLEATED RED BLOOD CELLS 3 /100 WBC
[2019-09-21 08:59] LABS: PLATELET ESTIMATE NORMAL
[2019-09-21] MEDS: CLOPIDOGREL 75MG TABLET PO SCH (09:05)
[2019-09-21] MEDS: MAGNESIUM OXIDE 400MG TABLET NG SCH (09:05)
[2019-09-21] MEDS: FUROSEMIDE 40MG TABLET NG SCH (09:05)
[2019-09-21] MEDS: ASPIRIN 81MG EC TABLET PO SCH (09:05)
[2019-09-21] MEDS: DOBUTAMINE 250MG PREMIX 250 ML IV SCH ×2 (16:22→23:56)
[2019-09-21] MEDS ORDERED: FUROSEMIDE 40MG TABLET NG SCH (17:00)
[2019-09-21] MEDS: ATORVASTATIN CALCIUM 40MG TABLET PO SCH (21:10)
[2019-09-22] VITALS (19 sets, daily range): BP systolic 100–137; BP diastolic 59–82
[2019-09-22] MEDS: BLOOD SUGAR DIAGNOSTIC STRIP TEST SCH ×4 (00:01→17:06)
[2019-09-22] MEDS: IPRATROPIUM/ALBUTEROL 0.5-3(2.5)MG/3ML NEB HHN SCH ×4 (02:31→20:49)
[2019-09-22] MEDS: INSULIN LISPRO 100 UNITS/ML SUBCUT SCH ×4 (06:00→17:05)
[2019-09-22] MEDS: NITROGLYCERIN OINT 1GM/INCH UDPKT TD SCH ×3 (06:00→21:36)
[2019-09-22 07:15] LABS: HEMATOCRIT. 31.7 % (42.0-52.0); HEMOGLOBIN. 10.2 g/dL (14.0-18.0); MEAN CORPUSCULAR HEMOGLOBIN 30.6 pg (28.0-32.0); MEAN CORPUSCULAR VOLUME 94.7 fL (80.0-94.0); PLATELET 363 x1000/uL (130-400); RED BLOOD CELL COUNT 3.35 mill/uL (4.7-6.1); RED CELL DISTRIBUTION WIDTH 15.5 % (11.6-14.6)
[2019-09-22 08:14] LABS: CHLORIDE 107 mEq/L (98-107)
[2019-09-22] MEDS: METHYLPREDNISOLONE SOD SUCC 40 MG/ML VIAL IV SCH (09:30)
[2019-09-22] MEDS: FUROSEMIDE 40MG/4ML VIAL IVP SCH ×2 (09:30→17:43)
[2019-09-22] MEDS: CLOPIDOGREL 75MG TABLET PO SCH (09:30)
[2019-09-22] MEDS: MAGNESIUM OXIDE 400MG TABLET NG SCH (09:30)
[2019-09-22] MEDS: ASPIRIN 81MG EC TABLET PO SCH (09:57)
[2019-09-22] MEDS: DOBUTAMINE 250MG PREMIX 250 ML IV SCH ×2 (10:08→13:02)
[2019-09-22 12:27] LABS: PLATELET ESTIMATE NORMAL
[2019-09-22] MEDS ORDERED: DOBUTAMINE 250MG PREMIX 250 ML IV SCH (12:30)
[2019-09-22] MEDS: ACETYLCYSTEINE 100MG/ML 10% VIAL 4ML INH SCH (13:39)
[2019-09-22] MEDS: MIDODRINE HCL 5MG TABLET PO SCH ×2 (14:31→17:44)
[2019-09-22] MEDS: DOBUTAMINE 500MG PREMIX 250 ML IV SCH ×2 (15:06→23:20)
[2019-09-22] MEDS: ATORVASTATIN CALCIUM 40MG TABLET PO SCH (21:29)
[2019-09-23] VITALS (11 sets, daily range): BP systolic 94–125; BP diastolic 52–92
[2019-09-23] MEDS: BLOOD SUGAR DIAGNOSTIC STRIP TEST SCH ×4 (01:01→18:00)
[2019-09-23] MEDS: IPRATROPIUM/ALBUTEROL 0.5-3(2.5)MG/3ML NEB HHN SCH ×4 (01:28→21:00)
[2019-09-23] MEDS: ACETYLCYSTEINE 100MG/ML 10% VIAL 4ML INH SCH ×3 (01:28→13:54)
[2019-09-23] MEDS: NITROGLYCERIN OINT 1GM/INCH UDPKT TD SCH (06:00)
[2019-09-23] MEDS: INSULIN LISPRO 100 UNITS/ML SUBCUT SCH ×4 (06:00→18:00)
[2019-09-23] MEDS: FUROSEMIDE 40MG/4ML VIAL IVP SCH ×2 (06:21→17:24)
[2019-09-23 07:26] LABS: HEMATOCRIT. 28.7 % (42.0-52.0); HEMOGLOBIN. 9.5 g/dL (14.0-18.0); MEAN CORPUSCULAR VOLUME 94.2 fL (80.0-94.0); MEAN PLATELET VOLUME 8.8 fl (7.4-10.4); PLATELET 343 x1000/uL (130-400); RED BLOOD CELL COUNT 3.05 mill/uL (4.7-6.1); RED CELL DISTRIBUTION WIDTH 15.6 % (11.6-14.6)
[2019-09-23 08:09] LABS: CHLORIDE 106 mEq/L (98-107)
[2019-09-23] MEDS: GUAIFENESIN 200MG/10ML SUGAR FREE UDC PO PRN ×2 (08:13→18:14)
[2019-09-23] MEDS: ASPIRIN 81MG EC TABLET PO SCH (08:13)
[2019-09-23] MEDS: METHYLPREDNISOLONE SOD SUCC 40 MG/ML VIAL IV SCH (08:13)
[2019-09-23] MEDS: MIDODRINE HCL 5MG TABLET PO SCH ×3 (08:13→17:24)
[2019-09-23] MEDS: MAGNESIUM OXIDE 400MG TABLET NG SCH (08:13)
[2019-09-23] MEDS: CLOPIDOGREL 75MG TABLET PO SCH (08:13)
[2019-09-23] MEDS: DOBUTAMINE 500MG PREMIX 250 ML IV SCH ×2 (08:52→20:14)
[2019-09-23] MEDS: ATORVASTATIN CALCIUM 40MG TABLET PO SCH (20:13)
[2019-09-23 21:30] LABS: CLARITY URINE CLEAR (CLEAR); COLOR URINE YELLOW (YELLOW); KETONES URINE NEGATIVE (NEGATIVE); LEUKOCYTE ESTERASE URINE NEGATIVE (NEGATIVE); NITRITE URINE NEGATIVE (NEGATIVE); OCCULT BLOOD URINE NEGATIVE (NEGATIVE); PROTEIN URINE NEGATIVE (NEGATIVE); SPECIFIC GRAVITY URINE 1.013 (1.005-1.030)
[2019-09-24] VITALS (12 sets, daily range): BP systolic 93–141; BP diastolic 52–84
[2019-09-24] MEDS: BLOOD SUGAR DIAGNOSTIC STRIP TEST SCH ×4 (00:28→17:42)
[2019-09-24] MEDS: ACETAMINOPHEN 650MG/20.3ML UDC PO PRN (01:44)
[2019-09-24] MEDS: GUAIFENESIN 200MG/10ML SUGAR FREE UDC PO PRN ×3 (01:44→14:07)
[2019-09-24] MEDS: IPRATROPIUM/ALBUTEROL 0.5-3(2.5)MG/3ML NEB HHN SCH ×4 (02:30→22:13)
[2019-09-24] MEDS: ACETYLCYSTEINE 100MG/ML 10% VIAL 4ML INH SCH ×2 (02:30→08:13)
[2019-09-24] MEDS: INSULIN LISPRO 100 UNITS/ML SUBCUT SCH ×4 (06:00→17:42)
[2019-09-24 06:24] LABS: HEMATOCRIT. 30.8 % (42.0-52.0); MEAN CORPUSCULAR HEMOGLOBIN 30.5 pg (28.0-32.0); MEAN CORPUSCULAR VOLUME 93.7 fL (80.0-94.0); PLATELET 380 x1000/uL (130-400); RED BLOOD CELL COUNT 3.29 mill/uL (4.7-6.1); RED CELL DISTRIBUTION WIDTH 15.2 % (11.6-14.6)
[2019-09-24 06:27] LABS: CHLORIDE 102 mEq/L (98-107)
[2019-09-24] MEDS: DOBUTAMINE 500MG PREMIX 250 ML IV SCH ×2 (07:00→15:28)
[2019-09-24] MEDS: FUROSEMIDE 40MG/4ML VIAL IVP SCH ×2 (07:00→17:42)
[2019-09-24 07:30] LABS: PLATELET ESTIMATE NORMAL
[2019-09-24] MEDS ORDERED: POTASSIUM CHLORIDE 20MEQ TABLET SR PO NR (07:45)
[2019-09-24] MEDS: METHYLPREDNISOLONE SOD SUCC 40 MG/ML VIAL IV SCH (08:09)
[2019-09-24] MEDS: MIDODRINE HCL 5MG TABLET PO SCH ×3 (08:10→17:42)
[2019-09-24] MEDS: CLOPIDOGREL 75MG TABLET PO SCH (08:10)
[2019-09-24] MEDS: ASPIRIN 81MG EC TABLET PO SCH (08:10)
[2019-09-24] MEDS: MAGNESIUM OXIDE 400MG TABLET NG SCH (08:10)
[2019-09-24] MEDS ORDERED: ASPIRIN 81MG EC TABLET PO SCH (10:30)
[2019-09-24] MEDS ORDERED: HYDROCODONE/ACETAMINOPHEN 5/325MG TABLET PO PRN (15:15)
[2019-09-24 16:02] LABS: PLATELET ESTIMATE NORMAL
[2019-09-24] MEDS: ATORVASTATIN CALCIUM 40MG TABLET PO SCH (20:04)
[2019-09-25] VITALS (16 sets, daily range): BP systolic 94–156; BP diastolic 44–92
[2019-09-25] MEDS ORDERED: DOBUTAMINE 500 MG in DEXT 5% WATER 210 ML IV SCH ×2
[2019-09-25] MEDS: BLOOD SUGAR DIAGNOSTIC STRIP TEST SCH ×3 (00:13→11:59)
[2019-09-25] MEDS: DOBUTAMINE 500 MG in DEXT 5% WATER 210 ML IV SCH ×3 (00:19→20:09)
[2019-09-25] MEDS: ACETYLCYSTEINE 100MG/ML 10% VIAL 4ML INH SCH ×3 (03:54→15:27)
[2019-09-25] MEDS: IPRATROPIUM/ALBUTEROL 0.5-3(2.5)MG/3ML NEB HHN SCH ×4 (03:54→20:40)
[2019-09-25] MEDS: INSULIN LISPRO 100 UNITS/ML SUBCUT SCH ×3 (05:00→12:00)
[2019-09-25 06:47] LABS: HEMATOCRIT. 30.3 % (42.0-52.0); HEMOGLOBIN. 9.8 g/dL (14.0-18.0); MEAN CORPUSCULAR HEMOGLOBIN 30.5 pg (28.0-32.0); MEAN CORPUSCULAR VOLUME 93.9 fL (80.0-94.0); MEAN PLATELET VOLUME 8.9 fl (7.4-10.4); PLATELET 399 x1000/uL (130-400); RED BLOOD CELL COUNT 3.23 mill/uL (4.7-6.1); RED CELL DISTRIBUTION WIDTH 15.8 % (11.6-14.6)
[2019-09-25 06:48] LABS: CHLORIDE 102 mEq/L (98-107)
[2019-09-25] MEDS: ASPIRIN 81MG EC TABLET PO SCH (10:01)
[2019-09-25] MEDS: MIDODRINE HCL 5MG TABLET PO SCH ×3 (10:02→18:14)
[2019-09-25] MEDS: CLOPIDOGREL 75MG TABLET PO SCH (10:02)
[2019-09-25] MEDS: MAGNESIUM OXIDE 400MG TABLET NG SCH (10:02)
[2019-09-25] MEDS: FUROSEMIDE 40MG/4ML VIAL IVP SCH ×2 (10:02→18:14)
[2019-09-25 14:42] LABS: PLATELET ESTIMATE NORMAL
[2019-09-25] MEDS: ATORVASTATIN CALCIUM 40MG TABLET PO SCH (20:09)
[2019-09-26] VITALS (12 sets, daily range): BP systolic 90–115; BP diastolic 40–80
[2019-09-26] MEDS: ACETYLCYSTEINE 100MG/ML 10% VIAL 4ML INH SCH ×3 (00:21→16:20)
[2019-09-26] MEDS: IPRATROPIUM/ALBUTEROL 0.5-3(2.5)MG/3ML NEB HHN SCH ×4 (00:22→20:21)
[2019-09-26] MEDS: DOBUTAMINE 500 MG in DEXT 5% WATER 210 ML IV SCH ×3 (03:39→16:01)
[2019-09-26] MEDS ORDERED: PIPERACILLIN/TAZOBACTAM 3.375 G/VIAL IV SCH (06:00)
[2019-09-26 07:04] LABS: CHLORIDE 100 mEq/L (98-107)
[2019-09-26 07:13] LABS: HEMATOCRIT. 28.4 % (42.0-52.0); HEMOGLOBIN. 9.5 g/dL (14.0-18.0); MEAN CORPUSCULAR HEMOGLOBIN 31.3 pg (28.0-32.0); MEAN CORPUSCULAR VOLUME 93.4 fL (80.0-94.0); MEAN PLATELET VOLUME 8.8 fl (7.4-10.4); PLATELET 372 x1000/uL (130-400); RED BLOOD CELL COUNT 3.03 mill/uL (4.7-6.1); RED CELL DISTRIBUTION WIDTH 15.4 % (11.6-14.6)
[2019-09-26] MEDS: ASPIRIN 81MG EC TABLET PO SCH (08:04)
[2019-09-26] MEDS: FUROSEMIDE 40MG/4ML VIAL IVP SCH ×2 (08:04→17:13)
[2019-09-26] MEDS: MAGNESIUM OXIDE 400MG TABLET NG SCH (08:04)
[2019-09-26] MEDS: MIDODRINE HCL 5MG TABLET PO SCH ×3 (08:04→17:28)
[2019-09-26] MEDS: CLOPIDOGREL 75MG TABLET PO SCH (08:04)
[2019-09-26] MEDS: GUAIFENESIN 200MG/10ML SUGAR FREE UDC PO PRN ×2 (08:05→17:13)
[2019-09-26] MEDS: PIPERACILLIN/TAZOBACTAM 3.375 G in DEXT 5% WATER 100 ML IV SCH ×3 (08:05→20:29)
[2019-09-26 13:34] LABS: PLATELET ESTIMATE NORMAL
[2019-09-26] MEDS: ONDANSETRON HCL 4MG/2ML INJ IV PRN (14:09)
[2019-09-26] MEDS: ATORVASTATIN CALCIUM 40MG TABLET PO SCH (20:29)
[2019-09-27] VITALS (17 sets, daily range): BP systolic 97–147; BP diastolic 40–76
[2019-09-27] MEDS: DOBUTAMINE 500 MG in DEXT 5% WATER 210 ML IV SCH ×2 (00:01→08:09)
[2019-09-27] MEDS: IPRATROPIUM/ALBUTEROL 0.5-3(2.5)MG/3ML NEB HHN SCH ×4 (01:10→20:09)
[2019-09-27] MEDS: ACETYLCYSTEINE 100MG/ML 10% VIAL 4ML INH SCH ×2 (01:11→08:00)
[2019-09-27] MEDS: PIPERACILLIN/TAZOBACTAM 3.375 G in DEXT 5% WATER 100 ML IV SCH ×4 (01:51→20:16)
[2019-09-27] MEDS: GUAIFENESIN 200MG/10ML SUGAR FREE UDC PO PRN (01:51)
[2019-09-27] MEDS: ONDANSETRON HCL 4MG/2ML INJ IV PRN (04:15)
[2019-09-27] MEDS: MAGNESIUM OXIDE 400MG TABLET NG SCH (08:07)
[2019-09-27] MEDS: CLOPIDOGREL 75MG TABLET PO SCH (08:07)
[2019-09-27] MEDS: FUROSEMIDE 40MG/4ML VIAL IVP SCH ×2 (08:07→16:50)
[2019-09-27] MEDS: MIDODRINE HCL 5MG TABLET PO SCH ×3 (08:08→16:51)
[2019-09-27] MEDS: ASPIRIN 81MG EC TABLET PO SCH (08:08)
[2019-09-27] MEDS: CHLORPROMAZINE HCL 25 MG TABLET PO PRN (08:44)
[2019-09-27 10:23] LABS: HEMATOCRIT. 30.6 % (42.0-52.0); HEMOGLOBIN. 9.9 g/dL (14.0-18.0); MEAN CORPUSCULAR HEMOGLOBIN 30.6 pg (28.0-32.0); MEAN CORPUSCULAR VOLUME 94.6 fL (80.0-94.0); MEAN PLATELET VOLUME 8.6 fl (7.4-10.4); PLATELET 372 x1000/uL (130-400); RED BLOOD CELL COUNT 3.23 mill/uL (4.7-6.1); RED CELL DISTRIBUTION WIDTH 15.9 % (11.6-14.6)
[2019-09-27 10:31] LABS: CHLORIDE 97 mEq/L (98-107)
[2019-09-27 11:16] LABS: PLATELET ESTIMATE NORMAL
[2019-09-27] MEDS ORDERED: DOBUTAMINE 500 MG in DEXT 5% WATER 210 ML IV SCH (14:37)
[2019-09-27] MEDS: DOBUTAMINE 500MG PREMIX 250 ML IV SCH ×2 (16:00→16:51)
[2019-09-27] MEDS: ATORVASTATIN CALCIUM 40MG TABLET PO SCH (20:16)
[2019-09-28] VITALS (19 sets, daily range): BP systolic 88–114; BP diastolic 24–74
[2019-09-28] MEDS ORDERED: DOBUTAMINE 500MG PREMIX 250 ML IV SCH
[2019-09-28] MEDS: CHLORPROMAZINE HCL 25 MG TABLET PO PRN ×2 (00:24→20:51)
[2019-09-28] MEDS: IPRATROPIUM/ALBUTEROL 0.5-3(2.5)MG/3ML NEB HHN SCH ×4 (02:03→20:58)
[2019-09-28] MEDS: PIPERACILLIN/TAZOBACTAM 3.375 G in DEXT 5% WATER 100 ML IV SCH ×5 (02:04→20:51)
[2019-09-28] MEDS: FUROSEMIDE 40MG/4ML VIAL IVP SCH ×2 (07:11→17:28)
[2019-09-28] MEDS: MIDODRINE HCL 5MG TABLET PO SCH ×3 (08:30→17:29)
[2019-09-28] MEDS: ASPIRIN 81MG EC TABLET PO SCH (08:30)
[2019-09-28] MEDS: MAGNESIUM OXIDE 400MG TABLET NG SCH (08:30)
[2019-09-28] MEDS: CLOPIDOGREL 75MG TABLET PO SCH (08:30)
[2019-09-28 10:00] LABS: BASOPHILS % 0.4 % (0.0-2.0); EOSINOPHILS % 0.7 % (0.0-5.0); HEMATOCRIT. 31.9 % (42.0-52.0); HEMOGLOBIN. 10.4 g/dL (14.0-18.0); LYMPHOCYTES % 9.5 % (20.0-50.0); MEAN CORPUSCULAR HEMOGLOBIN 30.6 pg (28.0-32.0); MEAN CORPUSCULAR VOLUME 93.4 fL (80.0-94.0); MEAN PLATELET VOLUME 8.8 fl (7.4-10.4); MONOCYTES % 6.3 % (2.0-8.0); NEUTROPHILS % 83.1 % (40.0-76.0); PLATELET 453 x1000/uL (130-400); RED BLOOD CELL COUNT 3.42 mill/uL (4.7-6.1); RED CELL DISTRIBUTION WIDTH 15.4 % (11.6-14.6)
[2019-09-28] MEDS ORDERED: POTASSIUM CHLORIDE 20MEQ/PACKET PO NR (11:45)
[2019-09-28] MEDS: ATORVASTATIN CALCIUM 40MG TABLET PO SCH (20:43)
[2019-09-29] VITALS: BP 97/52
== END 2019-09-29 01:29 | DRG 37 ==
LOC: ER 13:38 → EDBEDREQ 17:16 → 5WST 17:56 → EDBEDREQ 17:57 → EDBEDREQTM 17:57 → ENRESERV 20:40 → CVICU 09-12 14:30 → 3WST 09-19 12:10
PROVIDERS: ADMIT Internal Medicine; ATTEND Internal Medicine
PROC: 4B02XTZ Measurement of Cardiac Defibrillator, External Approach (ICD-10-PCS; 2019-09-09)
PROC: 03CK0ZZ Extirpation of Matter from Right Internal Carotid Artery, Open Approach (ICD-10-PCS; principal; 2019-09-12)
PROC: 03CM0ZZ Extirpation of Matter from Right External Carotid Artery, Open Approach (ICD-10-PCS; 2019-09-12)
PROC: 03CH0ZZ Extirpation of Matter from Right Common Carotid Artery, Open Approach (ICD-10-PCS; 2019-09-12)
PROC: 0BH17EZ Insertion of Endotracheal Airway into Trachea, Via Natural or Artificial Opening (ICD-10-PCS; 2019-09-13)
PROC: 5A1945Z Respiratory Ventilation, 24-96 Consecutive Hours (ICD-10-PCS; 2019-09-13)
PROC: 02HV33Z Insertion of Infusion Device into Superior Vena Cava, Percutaneous Approach (ICD-10-PCS; 2019-09-13)
PROC: B548ZZA Ultrasonography of Superior Vena Cava, Guidance (ICD-10-PCS; 2019-09-13)
PROC: 5A09357 Assistance with Respiratory Ventilation, Less than 24 Consecutive Hours, Continuous Positive Airway Pressure (ICD-10-PCS; 2019-09-15)
PROC: 5A09357 Assistance with Respiratory Ventilation, Less than 24 Consecutive Hours, Continuous Positive Airway Pressure (ICD-10-PCS; 2019-09-16)
PROC: 5A09357 Assistance with Respiratory Ventilation, Less than 24 Consecutive Hours, Continuous Positive Airway Pressure (ICD-10-PCS; 2019-09-17)
DX: I63.511 Cerebral infarction due to unspecified occlusion or stenosis of right middle cerebral artery (principal); A41.9 Sepsis, unspecified organism; J18.9 Pneumonia, unspecified organism; I50.23 Acute on chronic systolic (congestive) heart failure; J96.01 Acute respiratory failure with hypoxia; J44.1 Chronic obstructive pulmonary disease with (acute) exacerbation; I13.0 Hypertensive heart and chronic kidney disease with heart failure and stage 1 through stage 4 chronic kidney disease, or unspecified chronic kidney disease; E87.0 Hyperosmolality and hypernatremia; E87.3 Alkalosis; G93.40 Encephalopathy, unspecified; I47.2 Ventricular tachycardia; I42.9 Cardiomyopathy, unspecified; J44.0 Chronic obstructive pulmonary disease with (acute) lower respiratory infection; J98.11 Atelectasis; I25.5 Ischemic cardiomyopathy; I25.10 Atherosclerotic heart disease of native coronary artery without angina pectoris; E78.5 Hyperlipidemia, unspecified; N18.9 Chronic kidney disease, unspecified; R74.0 Nonspecific elevation of levels of transaminase and lactic acid dehydrogenase [LDH]; G90.8 Other disorders of autonomic nervous system; E83.42 Hypomagnesemia; I48.91 Unspecified atrial fibrillation; R13.10 Dysphagia, unspecified; E87.5 Hyperkalemia; D64.9 Anemia, unspecified; E87.6 Hypokalemia; I65.21 Occlusion and stenosis of right carotid artery; K21.9 Gastro-esophageal reflux disease without esophagitis; I49.9 Cardiac arrhythmia, unspecified; F41.9 Anxiety disorder, unspecified; I35.1 Nonrheumatic aortic (valve) insufficiency; Z86.73 Personal history of transient ischemic attack (TIA), and cerebral infarction without residual deficits; Z95.5 Presence of coronary angioplasty implant and graft; Z95.810 Presence of automatic (implantable) cardiac defibrillator; Z87.891 Personal history of nicotine dependence; Z79.899 Other long term (current) drug therapy; Z87.440 Personal history of urinary (tract) infections; I25.2 Old myocardial infarction
CPT/HCPCS: 36415; 36600; 70496; 70498; 71045; 71250; 74176; 76536; 76937; 78580; 80048; 80053; 80061; 80076; 81003; 82375; 82550; 82553; 82805; 82962; 83036; 83735; 83880; 84145; 84478; 84484; 85025; 85027; 86850; 86900; 87070; 88304; 88311; 92610; 93005; 93306; 93880; 93970; 94002; 94003; 94640; 94660; 97110; 97162; 97164; 97166; 97530; 97535; 99285; A6261; C1725; J0330; J0360; J0690; J1100; J1200; J1250; J1644; J1650; J1815; J1940; J2001; J2060; J2250; J2270; J2405; J2543; J2704; J2710; J2720; J2920; J3010; J3475; J3490; J7030; J7042; J7060; J7608; J7626; Q0161; Q9967

== ENCOUNTER 2020-01-19 12:07 | Emergency (ER) | payer OTHER ==
[~2020-01-19] VITALS: Ht 188 cm; Wt 95.0 kg
[~2020-01-19 12:07] MED LIST changes: -CARV12.545 PO; +CARV6.2548 PO; -COR3 MT; +FURO80TA3 PO; -MEXI200C PO; +SACU1TAB PO; -SACU1TAB4 PO
[2020-01-19 14:42] VITALS: BP 122/88
== END 2020-01-19 14:45 | disposition home or self-care (01) ==
LOC: ER 12:07
DX: R22.42 Localized swelling, mass and lump, left lower limb (principal); I10 Essential (primary) hypertension; Z86.73 Personal history of transient ischemic attack (TIA), and cerebral infarction without residual deficits; Z95.0 Presence of cardiac pacemaker
CPT/HCPCS: 73590; 93971; 99284

== ENCOUNTER 2020-01-23 08:38 | Emergency (ER) | payer OTHER ==
[~2020-01-23] VITALS: Ht 188 cm; Wt 90.0 kg
[2020-01-23 10:31] LABS: EOSINOPHILS % 0.3 % (0.0-5.0); HEMOGLOBIN. 17.3 g/dL (14.0-18.0); LYMPHOCYTES % 19.9 % (20.0-50.0); MEAN CORPUSCULAR VOLUME 85.9 fL (80.0-94.0); NEUTROPHILS % 69.8 % (40.0-76.0); RED BLOOD CELL COUNT 6.17 mill/uL (4.7-6.1); RED CELL DISTRIBUTION WIDTH 20.1 % (11.6-14.6)
[2020-01-23 10:40] LABS: CHLORIDE 101 mEq/L (98-107)
[2020-01-23 10:53] LABS: PLATELET ESTIMATE NORMAL
[2020-01-23 10:54] LABS: MEAN PLATELET VOLUME 8.3 fl (7.4-10.4); PLATELET 192 x1000/uL (130-400)
[2020-01-23 11:37] LABS: INR 1.1; PARTIAL THROMBOPLASTIN TIME 31.4 sec (23.4-31.0)
[2020-01-23 18:15] VITALS: BP 162/75
== END 2020-01-23 18:31 ==
LOC: ER 08:38 → CANBEDREQ 01-24 11:10
DX: T82.199A Other mechanical complication of unspecified cardiac device, initial encounter (principal); R07.89 Other chest pain; Z86.73 Personal history of transient ischemic attack (TIA), and cerebral infarction without residual deficits; Z95.0 Presence of cardiac pacemaker; Z79.82 Long term (current) use of aspirin; Y83.8 Other surgical procedures as the cause of abnormal reaction of the patient, or of later complication, without mention of misadventure at the time of the procedure; Y92.018 Other place in single-family (private) house as the place of occurrence of the external cause
CPT/HCPCS: 36415; 71045; 80053; 83735; 84484; 85025; 93005; 99285

== ENCOUNTER 2020-02-13 17:43 | Emergency (ER) | payer OTHER ==
[~2020-02-13] VITALS: Ht 177.8 cm; Wt 85.0 kg
[2020-02-13 20:01] LABS: CHLORIDE 100 mEq/L (98-107)
[2020-02-13 20:18] LABS: BASOPHILS % 0.4 % (0.0-2.0); EOSINOPHILS % 0.8 % (0.0-5.0); HEMATOCRIT. 52.1 % (42.0-52.0); LYMPHOCYTES % 14.8 % (20.0-50.0); MEAN CORPUSCULAR HEMOGLOBIN 27.6 pg (28.0-32.0); MEAN CORPUSCULAR VOLUME 84.3 fL (80.0-94.0); MONOCYTES % 10.7 % (2.0-8.0); NEUTROPHILS % 73.3 % (40.0-76.0); PLATELET 223 x1000/uL (130-400); RED BLOOD CELL COUNT 6.17 mill/uL (4.7-6.1)
[2020-02-13] MEDS ORDERED: NITROGLYCERIN 0.4MG TABLET SL SL ONE (22:15)
[2020-02-14 04:00] VITALS: BP 113/67
== END 2020-02-14 04:27 | disposition short-term general hospital (02) ==
LOC: ER 17:54 → CANBEDREQ 02-14 08:42
DX: R07.89 Other chest pain (principal); I25.10 Atherosclerotic heart disease of native coronary artery without angina pectoris; I50.9 Heart failure, unspecified; J44.9 Chronic obstructive pulmonary disease, unspecified; E78.00 Pure hypercholesterolemia, unspecified; I25.2 Old myocardial infarction; Z86.73 Personal history of transient ischemic attack (TIA), and cerebral infarction without residual deficits; Z95.0 Presence of cardiac pacemaker; Z79.899 Other long term (current) drug therapy
CPT/HCPCS: 36415; 71045; 80053; 83880; 84484; 85025; 93005; 99285